=== PATIENT | female | born 2000 | race Caucasian/White ===

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

== ENCOUNTER → 2019-02-04 | Outpatient (REF) | payer OTHER ==
[~2019-02-04] MED LIST changes: +AMOX875T PO; +BACT800T5 PO; +COLA100C5 PO; +IBUP80TA PO; +MONI1CRE2 PV; +NORCOTAB PO; +PERC5TAB12 PO; +PRENCHW PO; +ZOFR4TAB14 PO
[2019-02-04 20:25] LABS: CHLAMYDIA DNA AMPLIFICATION NEGATIVE (NEGATIVE); GC DNA AMPLIFICATION NEGATIVE (NEGATIVE)
== END ==
LOC: M LAB REF 16:54
PROVIDERS: ATTEND Nurse Practitioner Primary Care
DX: R30.0 Dysuria (principal); Z72.51 High risk heterosexual behavior; N77.1 Vaginitis, vulvitis and vulvovaginitis in diseases classified elsewhere

== ENCOUNTER 2020-08-31 19:41 | Emergency (ER) | payer OTHER ==
[~2020-08-31] VITALS: Ht 157.5 cm; Wt 71.4 kg
[~2020-08-31 19:41] MED LIST changes: +HYDR-3715 PO; -NORCOTAB PO
[2020-08-31] MEDS ORDERED: methylPREDNISolone 125MG 2ML VIAL IV ONE (20:15)
[2020-08-31] MEDS ORDERED: NS 1,000 ML IV ONE (20:15)
[2020-08-31] MEDS ORDERED: ALBUTEROL 90 MCG/ACT 8GM HFA INHALER INH ONE (20:15)
[2020-08-31] MEDS ORDERED: ONDANSETRON 4MG/2ML VIAL IV ONE (20:15)
[2020-08-31 20:49] LABS: BASO % 0.3 % (0.0-1.0); EOS # 0.2 10^3/uL (0.0-0.5); EOS % 1.7 % (0.0-3.0); HEMATOCRIT 41.7 % (36.0-47.0); HEMOGLOBIN 13.3 g/dl (12.0-15.5); LYMPH # 2.1 10^3/uL (1.5-5.0); LYMPH % 21.6 % (24.0-44.0); MEAN CORPUSCULAR HEMOGLOBIN 26.7 pg (27.0-33.0); MEAN CORPUSCULAR HGB CONC 31.9 g/dl (32.0-36.5); MEAN CORPUSCULAR VOLUME 83.6 fl (80.0-96.0); MONO # 0.5 10^3/uL (0.0-0.8); MONO % 5.2 % (0.0-5.0); NEUTROPHILS # 6.7 10^3/uL (1.5-8.5); PLATELET COUNT, AUTOMATED 297 10^3/uL (150-450); RED BLOOD COUNT 4.99 10^6/uL (4.00-5.40); WHITE BLOOD COUNT 9.5 10^3/uL (4.0-10.0)
[2020-08-31 21:01] LABS: MONO SCRN NEGATIVE (NEGATIVE)
--- NOTE | 2020-08-31 21:59 | REPVR ---
PROCEDURE INFORMATION: Exam: XR Chest, 2 Views Exam date and time: 08/31/2020 9:40 PM Age: 19 years old Clinical indication: Cough and dyspnea; Additional info: Dyspnea/cough TECHNIQUE: Imaging protocol: XR of the chest Views: 2 views. COMPARISON: CR Ribs uni W-PA CHEST ONLY RIGHT 07/27/2017 2:15 PM FINDINGS: Lungs: Unremarkable. No consolidation. Pleural space: Unremarkable. No pleural effusion. No pneumothorax. Heart/Mediastinum: Unremarkable. No cardiomegaly. Bones/joints: Unremarkable. IMPRESSION: No acute findings. Electronically signed by: Adrien Maxwell On 08/31/2020 21:58:50 PM
[2020-08-31] MEDS ORDERED: BENZONATATE 100 MG CAP PO ONE (22:00)
[2020-08-31] MEDS ORDERED: PRED20TA PO (22:03)
[2020-08-31 22:44] VITALS: BP 123/61
== END 2020-08-31 22:55 | disposition home or self-care (01) ==
LOC: M ED 19:41
DX: J45.901 Unspecified asthma with (acute) exacerbation (principal); J06.9 Acute upper respiratory infection, unspecified; Z20.828 Contact with and (suspected) exposure to other viral communicable diseases; F17.200 Nicotine dependence, unspecified, uncomplicated; Z91.030 Bee allergy status
CPT/HCPCS: 71046; 80047; 84702; 85025; 86308; 87880; 94640; 96361; 96374; 96375; 99284; J2405; J2930; U0003

== ENCOUNTER 2020-09-24 11:11 | Emergency (ER) | payer OTHER ==
[~2020-09-24] VITALS: Ht 157.5 cm; Wt 71.6 kg
[~2020-09-24 11:11] MED LIST changes: +PRED20TA PO
[2020-09-24] MEDS ORDERED: ALBU8.5H (11:20)
[2020-09-24 12:14] LABS: HEMATOCRIT 38.6 % (36.0-47.0); HEMOGLOBIN 12.5 g/dl (12.0-15.5); MEAN CORPUSCULAR HEMOGLOBIN 27.2 pg (27.0-33.0); MEAN CORPUSCULAR HGB CONC 32.4 g/dl (32.0-36.5); MEAN CORPUSCULAR VOLUME 83.9 fl (80.0-96.0); PLATELET COUNT, AUTOMATED 236 10^3/uL (150-450); WHITE BLOOD COUNT 6.8 10^3/uL (4.0-10.0)
[2020-09-24 12:35] LABS: HCG, SERUM QUALITATIVE POSITIVE (NEGATIVE)
--- NOTE | 2020-09-24 12:49 | REP ---
INDICATION: VB . COMPARISON: None. TECHNIQUE: Transabdominal and transvaginal scanning. FINDINGS: Uterine dimensions are 10.3 x 4.7 x 5.9 cm. Endometrial echo is 2.2 cm thick. No intrauterine gestational sac is seen. No free fluid is seen. No yolk sac seen. Normal ovaries are observed. Right ovarian dimensions are 3.6 x 1.4 x 2.8 cm. Doppler flow is present in the right ovary, resistive index 0.43. The left ovary measures 2.9 x 2.8 x 2.3 cm. Doppler flow is present in the left ovary as well, resistive index 0.61. No free fluid is seen. No adnexal mass is observed. IMPRESSION: Mildly prominent size empty uterus. No intrauterine gestational sac is seen. No adnexal mass or free fluid is observed. Nonspecific sonographic findings. Clinical and possibly sonographic follow-up suggested. <Electronically signed by Lawson Roque > 09/24/20 [id number]
[2020-09-24 13:25] LABS: HCG, SERUM QUANTITATIVE 676 MIU/ML
[2020-09-24] MEDS ORDERED: RHOGAM 300 MCG (1500 IU) INJ (J2790) IM ONE (14:00)
[2020-09-24 14:36] VITALS: BP 135/73
[2020-09-24 14:47] LABS: CHLAMYDIA DNA AMPLIFICATION NEGATIVE (NEGATIVE); GC DNA AMPLIFICATION POSITIVE (NEGATIVE)
== END 2020-09-24 14:40 | disposition home or self-care (01) ==
LOC: M ED 11:11
DX: O46.91 Antepartum hemorrhage, unspecified, first trimester (principal); Z20.828 Contact with and (suspected) exposure to other viral communicable diseases
CPT/HCPCS: 36415; 76801; 76817; 84702; 84703; 85027; 86850; 86900; 86901; 87210; 87661; 93976; 96372; 99283; J2790; U0003

== ENCOUNTER 2020-09-29 16:05 | Emergency (ER) | payer OTHER ==
[~2020-09-29] VITALS: Ht 160 cm; Wt 71.5 kg
[~2020-09-29 16:05] MED LIST changes: +ALBU8.5H
[2020-09-29 16:06] VITALS: BP 122/57
[2020-09-29] MEDS ORDERED: cefTRIAXone SOD 250MG VIAL (J0696 PER 250MG) IM ONE (16:45)
[2020-09-29] MEDS ORDERED: AZITHROMYCIN 250MG TABLET PO ONE (16:45)
[2020-09-29] MEDS ORDERED: LIDOCAINE 1% SDV 5ML VIAL DILUENT ONE (16:45)
== END 2020-09-29 17:00 | disposition home or self-care (01) ==
LOC: M ED 16:05
DX: O98.211 Gonorrhea complicating pregnancy, first trimester (principal); Z3A.01 Less than 8 weeks gestation of pregnancy
CPT/HCPCS: 96372; 99284; J0696

== ENCOUNTER 2020-10-06 19:49 | Emergency (ER) | payer OTHER ==
[~2020-10-06] VITALS: Ht 157.5 cm; Wt 72.7 kg
[2020-10-06] MEDS ORDERED: ONDANSETRON 4MG/2ML VIAL IV ONE (20:30)
[2020-10-06] MEDS ORDERED: NS 1,000 ML IV ONE ×2 (20:30→22:45)
[2020-10-06 20:49] LABS: BASO % 0.4 % (0.0-1.0); EOS % 0.6 % (0.0-3.0); HEMATOCRIT 39.1 % (36.0-47.0); HEMOGLOBIN 12.6 g/dl (12.0-15.5); LYMPH # 2.4 10^3/uL (1.5-5.0); LYMPH % 34.8 % (24.0-44.0); MEAN CORPUSCULAR HEMOGLOBIN 26.3 pg (27.0-33.0); MEAN CORPUSCULAR HGB CONC 32.2 g/dl (32.0-36.5); MEAN CORPUSCULAR VOLUME 81.6 fl (80.0-96.0); MONO # 0.5 10^3/uL (0.0-0.8); MONO % 7.5 % (0.0-5.0); NEUTROPHILS # 3.9 10^3/uL (1.5-8.5); NEUTROPHILS % 56.4 % (36.0-66.0); PLATELET COUNT, AUTOMATED 257 10^3/uL (150-450); RED BLOOD COUNT 4.79 10^6/uL (4.00-5.40); WHITE BLOOD COUNT 6.8 10^3/uL (4.0-10.0)
[2020-10-06 21:34] LABS: APPEARANCE, URINE HAZY (CLEAR); BACTERIA, URINE AUTO NEGATIVE (NEGATIVE); BILIRUBIN, URINE AUTO NEGATIVE (NEGATIVE); BLOOD, URINE BLOOD NEGATIVE (NEGATIVE); COLOR, URINE YELLOW (YELLOW); GLUCOSE, URINE (UA) AUTO NEGATIVE (NEGATIVE); KETONE, URINE AUTO 2+ mg/dL (NEGATIVE); LEUKOCYTE ESTERASE, URINE AUTO NEGATIVE (NEGATIVE); MUCUS, URINE SMALL (NEGATIVE); NITRITE, URINE AUTO NEGATIVE (NEGATIVE); PROTEIN, URINE AUTO NEGATIVE (NEGATIVE); RBC, URINE AUTO 1 /HPF (0-3); SQUAMOUS EPITHELIAL CELL UR AU 14 /HPF (0-6); WBC, URINE AUTO 1 /HPF (0-3)
--- NOTE | 2020-10-06 22:04 | REPVR ---
PROCEDURE INFORMATION: Exam: US First Trimester, Transabdominal Exam date and time: 10/06/2020 9:23 PM Age: 20 years old Clinical indication: Lmp or gestational age (in weeks): 08/15/20; Antepartum complications; Bleeding; ; Additional info: Vaginal bleeding TECHNIQUE: Imaging protocol: Real-time transabdominal obstetrical ultrasound of the maternal pelvis and a first trimester , less than 14 weeks 0 days, with image documentation. COMPARISON: No relevant prior studies available. FINDINGS: Gestation: An intrauterine gestational sac can be seen within the endometrium in both sagittal and transverse planes. Within the gestational sac there is a pole estimated at 6 weeks 2 days utilizing crown-rump length. There is cardiac activity estimated at 121 bpm. There may be a small crescent shaped implantation bleed. Uterus: The uterus measures 9.2 cm in length by 6.2 cm in AP dimension by 7.7 cm in transverse dimension. Cervix: Unremarkable. Right adnexa: The right ovary measures 2.5 cm in length by 1.9 cm in thickness and there is vascular flow with no evidence of torsion. Left adnexa: The left ovary measures 3.2 cm in length by 1.9 cm in thickness and there is vascular flow no evidence of torsion. Intraperitoneal space: There is no evidence of free fluid in the pelvis. Urinary bladder: There is only a small amount of urine in the urinary bladder. Other findings: There is decidual reaction noted. IMPRESSION: 1. Intrauterine gestational sac with a pole estimated at 6 weeks 2 days with good cardiac activity at 121 bpm. 2. Suspect small crescent shaped implantation bleed. 3. This is very early in gestation and all parameters cannot be assessed therefore a complete survey should be done at 18-20 weeks gestation. Electronically signed by: Anurag Elaine On 10/06/2020 22:04:14 PM
[2020-10-06] MEDS ORDERED: AZITHROMYCIN 250MG TABLET PO ONE (22:45)
[2020-10-06] MEDS ORDERED: cefTRIAXone SOD 250MG VIAL (J0696 PER 250MG) IM ONE (22:45)
[2020-10-06] MEDS ORDERED: LIDOCAINE 1% SDV 5ML VIAL DILUENT ONE (22:45)
[2020-10-06 22:57] LABS: CHLAMYDIA DNA AMPLIFICATION NEGATIVE (NEGATIVE); GC DNA AMPLIFICATION NEGATIVE (NEGATIVE)
[2020-10-06] MEDS ORDERED: ZOFR4TAB16 PO (23:00)
[2020-10-06 23:16] VITALS: BP 123/69
== END 2020-10-06 23:55 | disposition home or self-care (01) ==
LOC: M ED 19:49
DX: O20.0 Threatened abortion (principal); Z20.2 Contact with and (suspected) exposure to infections with a predominantly sexual mode of transmission; Z3A.01 Less than 8 weeks gestation of pregnancy; Z91.030 Bee allergy status; Z98.890 Other specified postprocedural states
CPT/HCPCS: 76801; 81001; 84702; 85025; 87086; 87491; 87591; 93976; 96372; 96374; 99284; J0696; J2405

== ENCOUNTER → 2020-10-26 | Outpatient (REF) | payer OTHER ==
[~2020-10-26] MED LIST changes: +ZOFR4TAB16 PO
[2020-10-26 18:28] LABS: BASO % 0.3 % (0.0-1.0); EOS # 0.1 10^3/uL (0.0-0.5); EOS % 1.2 % (0.0-3.0); HEMATOCRIT 38.9 % (36.0-47.0); HEMOGLOBIN 12.2 g/dl (12.0-15.5); LYMPH # 1.9 10^3/uL (1.5-5.0); LYMPH % 27.6 % (24.0-44.0); MEAN CORPUSCULAR HEMOGLOBIN 26.5 pg (27.0-33.0); MEAN CORPUSCULAR HGB CONC 31.4 g/dl (32.0-36.5); MEAN CORPUSCULAR VOLUME 84.6 fl (80.0-96.0); MONO # 0.3 10^3/uL (0.0-0.8); MONO % 4.7 % (0.0-5.0); NEUTROPHILS # 4.5 10^3/uL (1.5-8.5); NEUTROPHILS % 66.1 % (36.0-66.0); PLATELET COUNT, AUTOMATED 222 10^3/uL (150-450); WHITE BLOOD COUNT 6.8 10^3/uL (4.0-10.0)
[2020-10-26 18:29] LABS: ALBUMIN 3.7 GM/DL (3.2-5.2); ALT/SGPT 13 U/L (12-78); BILIRUBIN,TOTAL 0.3 MG/DL (0.2-1.0); BLOOD UREA NITROGEN 5 MG/DL (7-18); CALCIUM LEVEL 8.9 MG/DL (8.5-10.1); CARBON DIOXIDE LEVEL 26 MEQ/L (21-32); CHLORIDE LEVEL 106 MEQ/L (98-107); CREATININE FOR GFR 0.58 MG/DL (0.55-1.30); GLOMERULAR FILTRATION RATE > 60.0 (>60); GLUCOSE, FASTING 88 MG/DL (70-100); POTASSIUM SERUM 4.4 MEQ/L (3.5-5.1); SODIUM LEVEL 136 MEQ/L (136-145); THYROID STIMULATING HORMONE 0.389 uIU/ML (0.358-3.740); TOTAL PROTEIN 6.9 GM/DL (6.4-8.2)
== END ==
LOC: M LAB REF 17:11
PROVIDERS: ATTEND Physician Assistant
DX: Z33.1 Pregnant state, incidental (principal)

== ENCOUNTER 2020-11-08 13:56 | Emergency (ER) | payer OTHER ==
[~2020-11-08] VITALS: Ht 160 cm; Wt 69.9 kg
[2020-11-08] MEDS ORDERED: PYRI25TA2 PO (14:03)
[2020-11-08] MEDS ORDERED: PREP1TAB3 PO (14:03)
[2020-11-08] MEDS ORDERED: METR-265 PO (14:03)
[2020-11-08] MEDS ORDERED: FAMO1TAB11 PO (14:03)
[2020-11-08 14:59] LABS: HEMATOCRIT 39.2 % (36.0-47.0); HEMOGLOBIN 12.9 g/dl (12.0-15.5); MEAN CORPUSCULAR HEMOGLOBIN 27.4 pg (27.0-33.0); MEAN CORPUSCULAR HGB CONC 32.9 g/dl (32.0-36.5); MEAN CORPUSCULAR VOLUME 83.4 fl (80.0-96.0); PLATELET COUNT, AUTOMATED 246 10^3/uL (150-450); WHITE BLOOD COUNT 8.2 10^3/uL (4.0-10.0)
[2020-11-08] MEDS ORDERED: NS 1,000 ML IV ONE (15:00)
[2020-11-08 15:16] LABS: BLOOD UREA NITROGEN 7 MG/DL (7-18); CALCIUM LEVEL 9.3 MG/DL (8.5-10.1); CARBON DIOXIDE LEVEL 25 MEQ/L (21-32); CHLORIDE LEVEL 106 MEQ/L (98-107); CREATININE FOR GFR 0.53 MG/DL (0.55-1.30); GLOMERULAR FILTRATION RATE > 60.0 (>60); GLUCOSE, FASTING 82 MG/DL (70-100); POTASSIUM SERUM 4.2 MEQ/L (3.5-5.1); SODIUM LEVEL 138 MEQ/L (136-145)
--- NOTE | 2020-11-08 15:54 | REP ---
INDICATION: nausea, spotting reports 9 weeks COMPARISON: 10/06/2020 TECHNIQUE: Transabdominal 1st trimester obstetrical ultrasound with color Doppler evaluation. FINDINGS: Single live early intrauterine is appreciated. Gestational sac with yolk sac and pole identified. [place]-rump length of 4.8 cm corresponds to 11 weeks 4 days gestational age with estimated date of delivery 05/26/2021. heart rate equals 172 beats per minute. No gross abnormalities are identified. IMPRESSION: Single live early intrauterine at 11 weeks 4 days gestational age. Complete anatomical assessment should be performed and 19-20 weeks. <Electronically signed by Nicolás Cohn > 11/08/20 [id number]
[2020-11-08] MEDS ORDERED: MILKSUS3 PO (16:44)
[2020-11-08] MEDS ORDERED: MOM 30ML SUSPENSION UDC PO ONE (16:45)
[2020-11-08 16:49] VITALS: BP 122/56
== END 2020-11-08 16:52 | disposition home or self-care (01) ==
LOC: M ED 13:56
DX: O99.611 Diseases of the digestive system complicating pregnancy, first trimester (principal); O99.511 Diseases of the respiratory system complicating pregnancy, first trimester; O21.9 Vomiting of pregnancy, unspecified; Z3A.11 11 weeks gestation of pregnancy; Z79.899 Other long term (current) drug therapy; Z91.030 Bee allergy status

== ENCOUNTER → 2020-11-23 | Outpatient (REF) | payer OTHER ==
[~2020-11-23] MED LIST changes: +FAMO1TAB11 PO; +METR-265 PO; +MILKSUS3 PO; +PREP1TAB3 PO; +PYRI25TA2 PO
== END ==
LOC: M PLALAB 12:37
PROVIDERS: ATTEND Obstetrics & Gynecology
DX: Z53.9 Procedure and treatment not carried out, unspecified reason (principal); Z3A.14 14 weeks gestation of pregnancy

== ENCOUNTER → 2020-12-23 | Outpatient (CLI) | payer OTHER ==
--- NOTE | 2020-12-24 10:13 | REP ---
INDICATION: ANATOMY. Supervision of . COMPARISON: Comparison study November 08, 2020.. TECHNIQUE: Transabdominal obstetric sonography. FINDINGS: Scanning through the gravid uterus demonstrates a viable single intrauterine gestation in breech lie. motion is observed and heart rate is recorded at 143 beats per minute. A right posterior placenta is seen, grade 1, without evidence of placenta previa. Closed cervical length is measured at 4.0 cm transabdominally. No extrauterine abnormality is observed. Amniotic fluid is subjectively normal. No anomaly is seen. The following anatomic structures are identified and felt to be sonographically unremarkable: cranium, choroid plexus, cavum, cerebellum and posterior fossa, face and profile, lungs, four-chamber heart with left and right ventricular outflow tract views, diaphragm, left-sided stomach, abdominal wall cord insertion, three-vessel umbilical cord, kidneys and bladder, spine, and upper and lower extremities. Biometry chart: BPD 3.9 cm, 17 weeks 5 days Head circumference 14.6 cm, 17 weeks 6 days Abdominal circumference 12.3 cm, 18 weeks 0 days Femur length 2.3 cm, 16 weeks 6 days Humeral length 2.5 cm, 17 weeks 6 days HC AC ratio normal 1.19 Cephalic index normal 0.72 Estimated weight 196 g, 0 lb 6 oz, 51st percentile for 17 weeks 3 days IMPRESSION: Viable single intrauterine gestation at 17 weeks 5 days by today's composite sonographic criteria. GABBIE by today's sonography 28 May 2021. No complication identified. Expected gestational age estimate based on prior sonography is 17 weeks 3 days. GABBIE by prior sonography 30 May 2021. <Electronically signed by Lawson Roque > 12/24/20 [id number]
== END ==
LOC: M WHC 13:34
PROVIDERS: ATTEND Obstetrics & Gynecology
DX: Z36.89 Encounter for other specified antenatal screening (principal); Z3A.17 17 weeks gestation of pregnancy

== ENCOUNTER 2021-01-26 12:21 | Outpatient (CLI) | payer OTHER ==
[~2021-01-26] VITALS: Ht 157.5 cm; Wt 71.8 kg
[2021-01-26 12:36] VITALS: BP 121/60
[2021-01-26 13:21] LABS: HEMATOCRIT 33.2 % (36.0-47.0); HEMOGLOBIN 10.7 g/dl (12.0-15.5); MEAN CORPUSCULAR HEMOGLOBIN 27.9 pg (27.0-33.0); MEAN CORPUSCULAR HGB CONC 32.2 g/dl (32.0-36.5); MEAN CORPUSCULAR VOLUME 86.7 fl (80.0-96.0); PLATELET COUNT, AUTOMATED 223 10^3/uL (150-450); RED BLOOD COUNT 3.83 10^6/uL (4.00-5.40)
[2021-01-26 13:33] LABS: INR 0.96
[2021-01-26 13:34] LABS: PARTIAL THROMBOPLASTIN TIME 30.6 SECONDS (24.2-38.5)
[2021-01-26 13:54] VITALS: BP 113/65
--- NOTE | 2021-01-26 16:11 | IPNPDOC ---
Obstetrical Progress Note Date of Service Jan 26, 2021 Subjective 20-year-old G2, P1 001 at 23+1 weeks gestation. Presents today after a slip and fall on the stairs. She fell down 5 stairs and landed on her back. States she's had abdominal and lower back pain mainly lower back pain since the fall. Denies uterine contractions, vaginal bleeding or loss of fluid. She is feeling baby move regularly. States she has had spotting off and on during this and last had spotting this morning. Hard to ascertain if she had spotting after the fall. No loss of consciousness although the patient states she chronically feels dizzy and weak. Denies shortness of breath or chest pain Past medical and surgical history reviewed: History of prior , mild intermittent asthma and marijuana and tobacco use. Denies any recent drug use and feels safe at home Normotensive. Normal heart rate. Afebrile Abdomen soft, nontender, nondistended. No uterine fundal tenderness Extremities nonedematous, nontender Back: No CVA tenderness, positive sacroiliac tenderness Pelvic: Cervix is visually closed. No blood in the vaginal vault, normal discharge, no foul odor. Sterile Digital cervical exam reveals a closed long thick cervix with no bloody show EFM: Reactive for EGA, normal baseline, moderate variability, no decelerations noted [place]: No contraction pattern detected Labs: See [employer] / below. A/P: 20-year-old after slip and fall at 23+1 weeks' gestation. Reassuring maternal and status. No clinical evidence of placental abruption. Mild anemia noted, which could explain some of her symptoms of feeling weak and dizzy. -Routine second trimester precautions were reviewed -Advised that she start iron sulfate supplementation addition to her vitamin to correct her mild iron deficiency anemia -Follow-up in the office as scheduled Yony Miles DO Objective Vital Signs Date Time Temp Pulse Resp B/P (MAP) Pulse Ox O2 Delivery O2 Flow Rate FiO2 01/26/21 12:36 97.8 80 20 121/60 (80) Laboratory Tests 01/26/21 13:02: White Blood Count 8.0, Red Blood Count 3.83L, Hemoglobin 10.7L, Hematocrit 33.2L, Mean Corpuscular Volume 86.7, Mean Corpuscular Hemoglobin 27.9, Mean Corpuscular Hemoglobin Concent 32.2, Red Cell Distribution Width 13.5, Platelet Count 223, Nucleated Red Blood Cells % (auto) 0.0, Prothrombin Time 13.0, Prothromb Time International Ratio 0.96, Activated Partial Thromboplast Time 30.6, Fibrinogen 318 Laboratory Tests 01/26/21 13:02 Vital Signs Date Time Temp Pulse Resp B/P (MAP) Pulse Ox O2 Delivery O2 Flow Rate FiO2 01/26/21 12:36 97.8 80 20 121/60 (80) ART MILES DO Jan 26, 2021 16:11
== END 2021-01-26 16:10 | disposition home or self-care (01) ==
LOC: M LDO 12:21
PROVIDERS: ATTEND Obstetrics & Gynecology
DX: O99.891 Other specified diseases and conditions complicating pregnancy (principal); W10.8XXA Fall (on) (from) other stairs and steps, initial encounter; Z3A.23 23 weeks gestation of pregnancy

== ENCOUNTER → 2021-02-05 | Outpatient (REF) | payer OTHER | LOC: M PLALAB 15:22 | PROVIDERS: ATTEND Obstetrics & Gynecology | DX: O34.211 Maternal care for low transverse scar from previous cesarean delivery (principal) ==

== ENCOUNTER → 2021-02-26 | Outpatient (REF) | payer OTHER ==
[~2021-02-26] MED LIST changes: +ACET-897 PO; +FERR1TAB8 PO; +MACR100C43 PO
== END ==
LOC: M PLALAB 11:34
PROVIDERS: ATTEND Obstetrics & Gynecology
DX: O34.211 Maternal care for low transverse scar from previous cesarean delivery (principal)
CPT/HCPCS: 36415; 82950; 86850; 86901; J2790

== ENCOUNTER 2021-03-03 12:37 | Emergency (ER) | payer OTHER ==
[~2021-03-03] VITALS: Ht 160 cm; Wt 71.5 kg
[~2021-03-03 12:37] MED LIST changes: -ACET-897 PO; -FERR1TAB8 PO; -MACR100C43 PO
[2021-03-03] MEDS ORDERED: FERR1TAB8 PO (12:50)
[2021-03-03] MEDS ORDERED: ONDANSETRON 4MG/2ML VIAL IV ONE (13:45)
[2021-03-03] MEDS ORDERED: NS 1,000 ML IV ONE (13:45)
[2021-03-03 14:38] LABS: BASO % 0.4 % (0.0-1.0); EOS % 0.4 % (0.0-3.0); HEMATOCRIT 32.5 % (36.0-47.0); HEMOGLOBIN 10.7 g/dl (12.0-15.5); LYMPH # 1.8 10^3/uL (1.5-5.0); LYMPH % 18.5 % (24.0-44.0); MEAN CORPUSCULAR HEMOGLOBIN 28.1 pg (27.0-33.0); MEAN CORPUSCULAR HGB CONC 32.9 g/dl (32.0-36.5); MEAN CORPUSCULAR VOLUME 85.3 fl (80.0-96.0); MONO # 0.5 10^3/uL (0.0-0.8); MONO % 5.4 % (2.0-8.0); NEUTROPHILS # 7.1 10^3/uL (1.5-8.5); PLATELET COUNT, AUTOMATED 271 10^3/uL (150-450); RED BLOOD COUNT 3.81 10^6/uL (4.00-5.40); WHITE BLOOD COUNT 9.6 10^3/uL (4.0-10.0)
[2021-03-03 14:43] LABS: APPEARANCE, URINE CLOUDY (CLEAR); BACTERIA, URINE AUTO 1+ (NEGATIVE); BILIRUBIN, URINE AUTO NEGATIVE (NEGATIVE); BLOOD, URINE BLOOD NEGATIVE (NEGATIVE); CALCIUM OXALATE CRYSTALS MODERATE; COLOR, URINE YELLOW (YELLOW); GLUCOSE, URINE (UA) AUTO NEGATIVE (NEGATIVE); KETONE, URINE AUTO 1+ mg/dL (NEGATIVE); LEUKOCYTE ESTERASE, URINE AUTO 2+ (NEGATIVE); MUCUS, URINE SMALL (NEGATIVE); NITRITE, URINE AUTO NEGATIVE (NEGATIVE); PROTEIN, URINE AUTO 1+ mg/dL (NEGATIVE); RBC, URINE AUTO 13 /HPF (0-3); SPECIFIC GRAVITY URINE AUTO 1.027 (1.002-1.035); SQUAMOUS EPITHELIAL CELL UR AU 92 /HPF (0-6); WBC, URINE AUTO 16 /HPF (0-3)
[2021-03-03 15:04] LABS: AMPHETAMINES LEVEL URINE NEGATIVE (NEGATIVE); BARBITURATES URINE NEGATIVE (NEGATIVE); BENZODIAZEPINES URINE NEGATIVE (NEGATIVE); CANNABINOIDS URINE POSITIVE (NEGATIVE); COCAINE METABOLITE URINE NEGATIVE (NEGATIVE); METHADONE URINE NEGATIVE (NEGATIVE); OPIATES URINE NEGATIVE (NEGATIVE); PHENCYCLIDINE URINE NEGATIVE (NEGATIVE)
[2021-03-03 15:39] VITALS: BP 114/69
[2021-03-03 16:04] LABS: ALT/SGPT 11 U/L (12-78); BILIRUBIN,DIRECT < 0.1 MG/DL (0.0-0.2); BILIRUBIN,TOTAL 0.5 MG/DL (0.2-1.0); BLOOD UREA NITROGEN 7 MG/DL (7-18); CARBON DIOXIDE LEVEL 20 MEQ/L (21-32); CHLORIDE LEVEL 106 MEQ/L (98-107); CREATININE FOR GFR 0.41 MG/DL (0.55-1.30); GLOMERULAR FILTRATION RATE > 60.0 (>60); GLUCOSE, FASTING 79 MG/DL (70-100); POTASSIUM SERUM 4.4 MEQ/L (3.5-5.1); SODIUM LEVEL 137 MEQ/L (136-145); TOTAL PROTEIN 6.4 GM/DL (6.4-8.2)
== END 2021-03-03 15:52 | disposition home or self-care (01) ==
LOC: M ED 12:37
DX: O9A.23 Injury, poisoning and certain other consequences of external causes complicating the puerperium (principal); T40.7X1A Poisoning by cannabis (derivatives), accidental (unintentional), initial encounter; O21.9 Vomiting of pregnancy, unspecified; Z91.030 Bee allergy status; Z3A.00 Weeks of gestation of pregnancy not specified
CPT/HCPCS: 36415; 80048; 80076; 80307; 81001; 85025; 87086; 96361; 96374; 99284; J2405

== ENCOUNTER 2021-03-07 18:01 | Outpatient (CLI) | payer OTHER ==
[~2021-03-07] VITALS: Ht 157.5 cm; Wt 73.6 kg
[~2021-03-07 18:01] MED LIST changes: +FERR1TAB8 PO
[2021-03-07] MEDS ORDERED: ACET-897 PO (18:15)
[2021-03-07 18:17] VITALS: BP 103/62
[2021-03-07 19:22] LABS: APPEARANCE, URINE CLOUDY (CLEAR); BACTERIA, URINE AUTO NEGATIVE (NEGATIVE); BILIRUBIN, URINE AUTO NEGATIVE (NEGATIVE); BLOOD, URINE BLOOD NEGATIVE (NEGATIVE); COLOR, URINE YELLOW (YELLOW); GLUCOSE, URINE (UA) AUTO NEGATIVE (NEGATIVE); KETONE, URINE AUTO 1+ mg/dL (NEGATIVE); LEUKOCYTE ESTERASE, URINE AUTO TRACE (NEGATIVE); MUCUS, URINE SMALL (NEGATIVE); NITRITE, URINE AUTO NEGATIVE (NEGATIVE); PROTEIN, URINE AUTO NEGATIVE (NEGATIVE); RBC, URINE AUTO 2 /HPF (0-3); SPECIFIC GRAVITY URINE AUTO 1.015 (1.002-1.035); SQUAMOUS EPITHELIAL CELL UR AU 11 /HPF (0-6); WBC, URINE AUTO 8 /HPF (0-3)
[2021-03-07] MEDS ORDERED: MACR100C43 PO (20:33)
[2021-03-07] MEDS ORDERED: NITROFURANTOIN (MACROBID) 100 MG CAP PO ONE (20:35)
== END 2021-03-07 21:02 | disposition home or self-care (01) ==
LOC: M LDO 18:01
PROVIDERS: ATTEND Obstetrics & Gynecology
DX: O23.43 Unspecified infection of urinary tract in pregnancy, third trimester (principal); Z3A.28 28 weeks gestation of pregnancy

== ENCOUNTER 2021-03-19 21:27 | Emergency (ER) | payer OTHER ==
[~2021-03-19] VITALS: Ht 157.5 cm; Wt 74.5 kg
[2021-03-19 21:27] VITALS: BP 128/82
[~2021-03-19 21:27] MED LIST changes: +ACET-897 PO; +MACR100C43 PO
[2021-03-19] MEDS ORDERED: FAMO20TA PO (21:46)
== END 2021-03-20 00:24 | disposition left against medical advice (07) ==
LOC: M ED 21:27
DX: Z53.21 Procedure and treatment not carried out due to patient leaving prior to being seen by health care provider (principal)

== ENCOUNTER 2021-03-23 22:37 | Outpatient (CLI) | payer OTHER ==
[~2021-03-23] VITALS: Ht 157.5 cm; Wt 80.0 kg
[~2021-03-23 22:37] MED LIST changes: +FAMO20TA PO
[2021-03-23 22:44] VITALS: BP 109/89
[2021-03-23] MEDS ORDERED: TUMS500C PO (23:03)
[2021-03-23 23:30] LABS: HEMATOCRIT 30.6 % (36.0-47.0); MEAN CORPUSCULAR HEMOGLOBIN 27.8 pg (27.0-33.0); MEAN CORPUSCULAR HGB CONC 32.7 g/dl (32.0-36.5); PLATELET COUNT, AUTOMATED 231 10^3/uL (150-450); WHITE BLOOD COUNT 9.1 10^3/uL (4.0-10.0)
[2021-03-23 23:44] LABS: INR 0.96
--- NOTE | 2021-03-23 23:49 | IPNPDOC ---
Obstetrical Progress Note Date of Service March 23, 2021 Subjective Subjective/HPI: 20-year-old at 31+1 weeks' gestation. Presents today complaining of uterine cramping/contraction/pelvic discomfort and low back pain. Low back pain does not radiate the flank nor does it safer one side. Denies any vaginal bleeding or loss of fluid. Reports regular movement. She has had intercourse in the last 24 hours. Denies headache, visual changes, shortness of breath, chest pain. Recently treated for a UTI and has recently been prescribed another antibiotic for URI symptoms. course uncomplicated thus far History of prior emergent low transverse section for placental abruption Objective: Normotensive. Normal heart rate. Afebrile Abdomen soft, nontender, nondistended. Uterine fundus , nontender. Extremities nonedematous, nontender Pelvic: Sterile speculum exam reveals no pooling, no vaginal bleeding, no abnormal discharge or foul odor. Negative nitrazine, negative ferning. Sterile vaginal/cervical exam reveals a closed long thick cervix. Transvaginal ultrasound, limited: Cervical length 4.5 cm. No dynamic changes/funneling. Transabdominal ultrasound, limited: Cephalic presentation, MVP 5.5 cm EFM: Reactive, moderate variability, no decelerations [place]:. No contractions Labs: See [employer] Assessment/plan: 20 year-old at 31+1 weeks' gestation. No evidence of premature ruptured membranes, active labor, advanced cervical dilation, or shortened cervical length. Current maternal and condition is reassuring. -Routine third trimester precautions were reviewed -Follow-up in the office as scheduled -Patient to make appointments with PT for treatment of her back pain Objective Vital Signs Date Time Temp Pulse Resp B/P (MAP) Pulse Ox O2 Delivery O2 Flow Rate FiO2 03/23/21 22:44 99.1 76 18 109/89 (96) ART GARCIA DO March 23, 2021 23:49
[2021-03-24 00:09] LABS: ALBUMIN 2.8 GM/DL (3.2-5.2); ALT/SGPT 9 U/L (12-78); BILIRUBIN,TOTAL 0.4 MG/DL (0.2-1.0); BLOOD UREA NITROGEN 4 MG/DL (7-18); CALCIUM LEVEL 8.5 MG/DL (8.5-10.1); CARBON DIOXIDE LEVEL 26 MEQ/L (21-32); CHLORIDE LEVEL 109 MEQ/L (98-107); CREATININE FOR GFR 0.43 MG/DL (0.55-1.30); GLOMERULAR FILTRATION RATE > 60.0 (>60); GLUCOSE, FASTING 80 MG/DL (70-100); POTASSIUM SERUM 4.2 MEQ/L (3.5-5.1); SODIUM LEVEL 139 MEQ/L (136-145); TOTAL PROTEIN 6.1 GM/DL (6.4-8.2)
[2021-03-24 01:18] LABS: AMPHETAMINES URINE REFLEX NEGATIVE (NEGATIVE); BARBITURATES URINE REFLEX NEGATIVE (NEGATIVE); BENZODIAZEPINES URINE REFLEX NEGATIVE (NEGATIVE); COCAINE METABOLITE URINE REFLE NEGATIVE (NEGATIVE); METHADONE URINE REFLEX NEGATIVE (NEGATIVE); OPIATES URINE REFLEX NEGATIVE (NEGATIVE); PHENCYCLIDINE URINE REFLEX NEGATIVE (NEGATIVE)
[2021-03-24 01:20] LABS: CANNABINOIDS URINE REFLEX PENDING CONFIRMATION (NEGATIVE)
[2021-03-24] MEDS ORDERED: ACETAMINOPHEN 500 MG TAB PO ONE (01:35)
== END 2021-03-24 01:45 | disposition home or self-care (01) ==
LOC: M LDO 22:37
PROVIDERS: ATTEND Obstetrics & Gynecology
DX: O26.893 Other specified pregnancy related conditions, third trimester (principal); M54.5 Low back pain; R10.2 Pelvic and perineal pain; Z3A.31 31 weeks gestation of pregnancy

== ENCOUNTER 2021-03-25 22:51 | Emergency (ER) | payer OTHER ==
[~2021-03-25] VITALS: Ht 157.5 cm; Wt 79.5 kg
[~2021-03-25 22:51] MED LIST changes: +TUMS500C PO
--- NOTE | 2021-03-25 23:46 | REPVR ---
PROCEDURE INFORMATION: Exam: CT Head Without Contrast Exam date and time: 03/25/2021 11:07 PM Age: 20 years old Clinical indication: Injury or trauma; Fall; Concussion/head injury; Additional info: Trauma/loc/ TECHNIQUE: Imaging protocol: Computed tomography of the head without contrast. Radiation optimization: All CT scans at this facility use at least one of these dose optimization techniques: automated exposure control; mA and/or kV adjustment per patient size (includes targeted exams where dose is matched to clinical indication); or iterative reconstruction. COMPARISON: CT Head without contrast 07/27/2017 2:03 PM FINDINGS: Brain: Normal. No hemorrhage. Unremarkable white matter. No mass effect. Cerebral ventricles: Normal ventricles. Bones/joints: Unremarkable. No acute fracture. Paranasal sinuses: Clear paranasal sinuses. Mastoid air cells: Clear mastoid air cells. Orbital cavity: The orbits appear symmetric. Soft tissues: There is no evidence of soft tissue abnormality. Other findings: There is no evidence of acute bleed. IMPRESSION: Normal appearing CT scan of the brain. Electronically signed by: Anurag Elaine On 03/25/2021 23:46:17 PM
[2021-03-26 00:18] LABS: BASO % 0.3 % (0.0-1.0); EOS # 0.1 10^3/uL (0.0-0.5); HEMATOCRIT 28.5 % (36.0-47.0); HEMOGLOBIN 9.6 g/dl (12.0-15.5); LYMPH # 2.7 10^3/uL (1.5-5.0); LYMPH % 30.2 % (24.0-44.0); MEAN CORPUSCULAR HGB CONC 33.7 g/dl (32.0-36.5); MEAN CORPUSCULAR VOLUME 83.1 fl (80.0-96.0); MONO # 0.6 10^3/uL (0.0-0.8); NEUTROPHILS # 5.3 10^3/uL (1.5-8.5); NEUTROPHILS % 60.5 % (36.0-66.0); PLATELET COUNT, AUTOMATED 257 10^3/uL (150-450); RED BLOOD COUNT 3.43 10^6/uL (4.00-5.40); WHITE BLOOD COUNT 8.8 10^3/uL (4.0-10.0)
[2021-03-26 00:35] LABS: INR 0.92; PROTHROMBIN TIME 12.5 SECONDS (12.5-14.3)
[2021-03-26 00:36] LABS: PARTIAL THROMBOPLASTIN TIME 30.5 SECONDS (24.2-38.5)
[2021-03-26 00:47] LABS: AMPHETAMINES LEVEL URINE NEGATIVE (NEGATIVE); BARBITURATES URINE NEGATIVE (NEGATIVE); BENZODIAZEPINES URINE NEGATIVE (NEGATIVE); CANNABINOIDS URINE POSITIVE (NEGATIVE); COCAINE METABOLITE URINE NEGATIVE (NEGATIVE); METHADONE URINE NEGATIVE (NEGATIVE); OPIATES URINE NEGATIVE (NEGATIVE); PHENCYCLIDINE URINE NEGATIVE (NEGATIVE)
--- NOTE | 2021-03-26 00:49 | REPVR ---
PROCEDURE INFORMATION: Exam: XR Pelvis Exam date and time: 03/25/2021 11:45 PM Age: 20 years old Clinical indication: Other: Trauma/ TECHNIQUE: Imaging protocol: XR pelvis. Views: 1 or 2 view. COMPARISON: Pelvis, limited US 09/02/2018 12:42 PM FINDINGS: Bones/joints: Mild diastasis of the pubic symphysis measuring 11 mm transversely. No SI joint diastasis is seen. No pelvic fracture or malalignment. Soft tissues: Unremarkable. Other findings: There is a fetus in breech position. IMPRESSION: 1. Mild diastasis of the pubic symphysis may be traumatic or secondary to ligamentous laxity in the setting of . 2. No displaced fracture or malalignment. 3. Fetus in breech position. Electronically signed by: Carlos Funes On 03/26/2021 00:48:34 AM
[2021-03-26 00:52] LABS: ALT/SGPT 9 U/L (12-78); AMYLASE 47 U/L (25-115); BILIRUBIN,DIRECT < 0.1 MG/DL (0.0-0.2); BILIRUBIN,TOTAL 0.4 MG/DL (0.2-1.0); BLOOD UREA NITROGEN 5 MG/DL (7-18); CALCIUM LEVEL 8.7 MG/DL (8.5-10.1); CARBON DIOXIDE LEVEL 23 MEQ/L (21-32); CHLORIDE LEVEL 109 MEQ/L (98-107); CK-MB VALUE MASS < 1.0 NG/ML (<3.6); CPK CREATINE PHOSPHOKINASE 34 U/L (26-192); CREATININE FOR GFR 0.41 MG/DL (0.55-1.30); ETHYL ALCOHOL (ETHANOL) < 0.003 % (0.000-0.010); GLOMERULAR FILTRATION RATE > 60.0 (>60); GLUCOSE, FASTING 79 MG/DL (70-100); LIPASE 188 U/L (73-393); MB/CK RELATIVE INDEX 2.94 (< OR =4); SODIUM LEVEL 138 MEQ/L (136-145); TOTAL PROTEIN 6.1 GM/DL (6.4-8.2); TROPONIN I < 0.02 NG/ML (< 0.10)
[2021-03-26] MEDS ORDERED: ACETAMINOPHEN *IV* 1,000 MG in IV 1 EA IV ONE (02:05)
[2021-03-26] MEDS ORDERED: oxyCODONE 5MG TAB PO ONE (04:10)
[2021-03-26 04:15] VITALS: BP 103/54
--- NOTE | 2021-03-26 07:38 | REP ---
INDICATION: trauma/. COMPARISON: None. TECHNIQUE: A single lateral spot view of the lumbosacral junction is presented. FINDINGS: Sacrum and coccyx appear intact. The top of L1 is at the top edge of the field of view. No fracture or subluxation is seen in the lumbar spine. Disc spaces are maintained. Alignment is normal. IMPRESSION: No fracture seen. Single lateral spot view of the lumbosacral junction. <Electronically signed by Lawson Roque > 03/26/21 [id number]
== END 2021-03-26 04:58 | disposition home or self-care (01) ==
LOC: M ED 22:51
DX: S39.92XA Unspecified injury of lower back, initial encounter (principal); W19.XXXA Unspecified fall, initial encounter; Y92.9 Unspecified place or not applicable; Y93.9 Activity, unspecified; Y99.9 Unspecified external cause status; Z3A.31 31 weeks gestation of pregnancy; Z79.899 Other long term (current) drug therapy; J30.2 Other seasonal allergic rhinitis; Z91.030 Bee allergy status
CPT/HCPCS: 70450; 72100; 72170; 80048; 80076; 80307; 81001; 82077; 82150; 82550; 82553; 83605; 83690; 85025; 85460; 85610; 85730; 86850; 86900; 86901; 93041; 94760; 99285; J0131

== ENCOUNTER 2021-03-26 05:02 | Outpatient (CLI) | payer OTHER ==
[~2021-03-26] VITALS: Ht 157.5 cm; Wt 73.4 kg
[2021-03-26 05:28] VITALS: BP 103/57
--- NOTE | 2021-03-26 06:11 | IPNPDOC ---
Obstetrical Progress Note Date of Service March 26, 2021 Subjective 20 yo at 31 4/7 weeks by LMP c/w 13 week ultrasound presents (EDC=05/24/2021) presents from the ED after falling down 14 stairs at home .She hit her back and side. She was cleared in the ED and sent t oTriage for monitoring. Objective Vital Signs Date Time Temp Pulse Resp B/P (MAP) Pulse Ox O2 Delivery O2 Flow Rate FiO2 03/26/21 05:28 86 103/57 (72) 03/26/21 05:27 98.3 18 Assessment Variability: Moderate Accelerations: Positive Decelerations: None Heart Rate Tracing: Category I Tocometer Contractions: No Assessment and Plan Age: 20 : 2 Term: 1 Pre-term: 0 Abortions: 0 Livin Additional Comments 20 yo at 31 4/7 s/p abdominal trauma Stable NST after extended monitoring Discharge home follow-up office as scheduled. DUGLAS JOY MD March 26, 2021 06:11
--- NOTE | 2021-03-26 09:35 | IPNPDOC ---
Text Note Date of Service The patient was seen on 03/26/21. NOTE Progress "I can't move; have no one to help me; can't get anyone to come get me." Pt is weepy, refusing discharge at this time Cat I tracing, no UC remainder of PNP (serology) added to labs from last night Will obtain her Rhogam from office and administer here Placed PFS consult. Stressed to patient she needs office appt next week. Hasn't been seen since January. VS,Fishbone, I+O VS, Fishbone, I+O Vital Signs Date Time Temp Pulse Resp B/P (MAP) Pulse Ox O2 Delivery O2 Flow Rate FiO2 03/26/21 05:28 86 103/57 (72) 03/26/21 05:27 98.3 18 Leena Melendrez CNM March 26, 2021 09:35
--- NOTE | 2021-03-26 11:28 | IPNPDOC ---
Text Note Date of Service The patient was seen on 03/26/21. NOTE Progress Rhogam from office adminstered by student nurse under supervision of Diane Torrez RN Lot # [id number], exp 07/04/22. Appointment made for 03/31 @ [address] Miles stressed need to keep all future appts Discharged home. VS,Fishbone, I+O VS, Fishbone, I+O Vital Signs Date Time Temp Pulse Resp B/P (MAP) Pulse Ox O2 Delivery O2 Flow Rate FiO2 03/26/21 05:28 86 103/57 (72) 03/26/21 05:27 98.3 18 Leena Melendrez CNM March 26, 2021 11:28
[2021-03-26 11:33] LABS: HIV 1&2 SCREEN CENTAUR NEGATIVE (NEGATIVE)
== END 2021-03-26 11:25 | disposition home or self-care (01) ==
LOC: M LDO 05:02
PROVIDERS: ATTEND Specialist
DX: O9A.213 Injury, poisoning and certain other consequences of external causes complicating pregnancy, third trimester (principal); S20.229A Contusion of unspecified back wall of thorax, initial encounter; Z3A.31 31 weeks gestation of pregnancy; Z91.19 Patient's noncompliance with other medical treatment and regimen; W10.8XXA Fall (on) (from) other stairs and steps, initial encounter; Y92.009 Unspecified place in unspecified non-institutional (private) residence as the place of occurrence of the external cause
CPT/HCPCS: 86762; 86780; 86803; 87340; 87389; 87490; 87590; U0002

== ENCOUNTER 2021-04-16 20:01 | Outpatient (CLI) | payer OTHER ==
[~2021-04-16] VITALS: Ht 160 cm; Wt 73.8 kg
--- NOTE | 2021-04-16 20:57 | IPNPDOC ---
Text Note Date of Service The patient was seen on 04/16/21. NOTE Outpatient 20yo GABBIE 05/24/2021. Presents @ 34w4d with complaints of LOF, spotting and consistent contractions. Reports good activity. Cat I tracing, no UC Spec exam neg pool, neg valsalva, neg nitrazine, neg fern. No evidence of bleeding SVE FT/long/OOP Rec increased fluids. Urine appears concentrated Dischared home. Routine precautions. Keep next appt Leena Melendrez CNM April 16, 2021 20:57
[2021-04-16 21:22] LABS: AMPHETAMINES URINE REFLEX NEGATIVE (NEGATIVE); BARBITURATES URINE REFLEX NEGATIVE (NEGATIVE); BENZODIAZEPINES URINE REFLEX NEGATIVE (NEGATIVE); COCAINE METABOLITE URINE REFLE NEGATIVE (NEGATIVE); METHADONE URINE REFLEX NEGATIVE (NEGATIVE); OPIATES URINE REFLEX NEGATIVE (NEGATIVE); PHENCYCLIDINE URINE REFLEX NEGATIVE (NEGATIVE)
[2021-04-16 21:24] LABS: APPEARANCE, URINE HAZY (CLEAR); BACTERIA, URINE AUTO NEGATIVE (NEGATIVE); BILIRUBIN, URINE AUTO NEGATIVE (NEGATIVE); BLOOD, URINE BLOOD NEGATIVE (NEGATIVE); COLOR, URINE YELLOW (YELLOW); GLUCOSE, URINE (UA) AUTO NEGATIVE (NEGATIVE); KETONE, URINE AUTO 1+ mg/dL (NEGATIVE); LEUKOCYTE ESTERASE, URINE AUTO 1+ (NEGATIVE); MUCUS, URINE SMALL (NEGATIVE); NITRITE, URINE AUTO NEGATIVE (NEGATIVE); PROTEIN, URINE AUTO NEGATIVE (NEGATIVE); RBC, URINE AUTO 2 /HPF (0-3); SPECIFIC GRAVITY URINE AUTO 1.016 (1.002-1.035); SQUAMOUS EPITHELIAL CELL UR AU 7 /HPF (0-6); WBC, URINE AUTO 4 /HPF (0-3)
[2021-04-16 21:42] LABS: CANNABINOIDS URINE REFLEX PENDING CONFIRMATION (NEGATIVE)
== END 2021-04-16 21:10 | disposition home or self-care (01) ==
LOC: M LDO 20:01
PROVIDERS: ATTEND Advanced Practice Midwife
DX: O47.03 False labor before 37 completed weeks of gestation, third trimester (principal); Z3A.34 34 weeks gestation of pregnancy; O26.853 Spotting complicating pregnancy, third trimester; Z91.030 Bee allergy status
CPT/HCPCS: 59025; 80307; 81001; G0480

== ENCOUNTER → 2021-04-22 | Outpatient (REF) | payer OTHER | LOC: M SFHCWAGY 17:20 | PROVIDERS: ATTEND Advanced Practice Midwife | DX: O34.211 Maternal care for low transverse scar from previous cesarean delivery (principal); Z3A.00 Weeks of gestation of pregnancy not specified ==

== ENCOUNTER → 2021-04-27 | Outpatient (REF) | payer OTHER | LOC: M SFHCWAGY 16:45 | PROVIDERS: ATTEND Obstetrics & Gynecology | DX: Z34.93 Encounter for supervision of normal pregnancy, unspecified, third trimester (principal); Z3A.36 36 weeks gestation of pregnancy ==

== ENCOUNTER → 2021-05-13 | Outpatient (CLI) | payer OTHER ==
[~2021-05-13] MED LIST changes: +FERR325T19; +OMEP-218
== END ==
LOC: M LABSMTC 12:01
PROVIDERS: ATTEND Anesthesiology
DX: Z01.818 Encounter for other preprocedural examination (principal); Z11.52 Encounter for screening for COVID-19

== ENCOUNTER 2021-05-17 07:40 | Inpatient (IN) | payer OTHER ==
[2021-05-17] VITALS (7 sets, daily range): BP systolic 95–121; BP diastolic 52–72
[~2021-05-17] VITALS: Ht 160 cm; Wt 75.3 kg
[2021-05-17] MEDS ORDERED: ZOLO25TA PO (08:11)
[2021-05-17] MEDS ORDERED: LR 1,000 ML IV SCH ×3 (08:15→13:20)
[2021-05-17] MEDS ORDERED: ceFAZolin SOD 2 GM in IV 1 EA IV ONE (08:20)
[2021-05-17] MEDS ORDERED: BICITRA 30ML SOLN UDC PO ONE (08:20)
[2021-05-17 08:26] LABS: MEAN CORPUSCULAR HEMOGLOBIN 24.3 pg (27.0-33.0); MEAN CORPUSCULAR VOLUME 78.4 fl (80.0-96.0); PLATELET COUNT, AUTOMATED 288 10^3/uL (150-450)
[2021-05-17] MEDS ORDERED: OXYTOCIN 30 UNITS IN 0.9% NaCl 500ML IV BAG (J2590) As Ordered ONE ×2 (10:11→13:57)
[2021-05-17] MEDS ORDERED: MORPHINE PRES-FREE INJ 10 MG/10 ML VIAL (J2274) As Ordered ONE (10:12)
[2021-05-17] MEDS ORDERED: dexameTHASONE 4 MG/ML 1ML VIAL (J1100 PER 1MG) As Ordered ONE (10:14)
[2021-05-17] MEDS ORDERED: PHENYLephrine 500MCG 5ML (100MCG/ML) SYRINGE As Ordered ONE ×2 (10:14→11:20)
[2021-05-17] MEDS ORDERED: ONDANSETRON 4MG/2ML VIAL As Ordered ONE (10:14)
[2021-05-17] MEDS ORDERED: OXYTOCIN INJ 10 UNITS/ML VIAL (J2590) As Ordered ONE (10:14)
[2021-05-17] MEDS ORDERED: KETOROLAC 60MG 2ML VIAL As Ordered ONE (10:14)
[2021-05-17] MEDS ORDERED: ePHEDrine SULFATE 25 MG/5 ML(5MG/ML) SYRINGE As Ordered ONE ×2 (10:14→12:09)
[2021-05-17 10:40] LABS: AMPHETAMINES URINE REFLEX NEGATIVE (NEGATIVE); BARBITURATES URINE REFLEX NEGATIVE (NEGATIVE); BENZODIAZEPINES URINE REFLEX NEGATIVE (NEGATIVE); COCAINE METABOLITE URINE REFLE NEGATIVE (NEGATIVE); METHADONE URINE REFLEX NEGATIVE (NEGATIVE); OPIATES URINE REFLEX NEGATIVE (NEGATIVE); PHENCYCLIDINE URINE REFLEX NEGATIVE (NEGATIVE)
[2021-05-17] MEDS ORDERED: NALBUPHINE HCL 10 MG/ML AMP (J2300) IV PRN (10:59)
[2021-05-17] MEDS ORDERED: ONDANSETRON 4MG/2ML VIAL IV PRN ×3 (10:59→13:20)
[2021-05-17] MEDS ORDERED: NALOXONE INJ 0.4MG/1ML VIAL (J2310 PER 1MG) IV PRN ×2 (10:59)
[2021-05-17] MEDS ORDERED: diphenhydrAMINE 50MG/ML VIAL (J1200) IV PRN (10:59)
[2021-05-17] MEDS ORDERED: METOCLOPRAMIDE INJ 10MG/2ML VIAL (J2765 PER 1) IV PRN ×2 (10:59→13:20)
[2021-05-17 11:04] LABS: CANNABINOIDS URINE REFLEX PENDING CONFIRMATION (NEGATIVE)
[2021-05-17] MEDS ORDERED: propofoL 200 MG/20 ML VIAL As Ordered ONE (11:40)
[2021-05-17 11:53] LABS: CORD GAS ABE V -6.6; CORD GAS HCO3 V 20.4 MEQ/L; CORD GAS O2 SAT V 43.9 %; CORD GAS PCO2 V 45.8 mmHg; CORD GAS PH V 7.266 UNITS; CORD GAS PO2 V 19.5 mmHg; CORD GAS SBC V 17.9 MEQ/L; CORD GAS TCO2 V 21.8 MEQ/L
[2021-05-17 11:55] LABS: CORD GAS ABE A -7.2; CORD GAS HCO3 A 23.6 MEQ/L; CORD GAS PCO2 A 72.7 mmHg; CORD GAS TCO2 A 25.9 MEQ/L
[2021-05-17 11:57] LABS: CORD GAS O2 SAT A < 15.0 %; CORD GAS PO2 A < 10.0 mmHg
[2021-05-17] MEDS ORDERED: fentaNYL 100 MCG/2 ML INJECTION (J3010) As Ordered ONE (11:57)
[2021-05-17] MEDS ORDERED: GLYCOPYRROLATE INJ 0.2 MG/ML 2 ML VIAL As Ordered ONE (12:12)
[2021-05-17] MEDS ORDERED: ACETAMINOPHEN 1000MG 100ML IV BTL (OFIRMEV) (J0131 PER 10MG) As Ordered ONE (12:29)
[2021-05-17] MEDS ORDERED: OXYTOCIN DRIP 30 UNITS in IV 1 EA IV SCH (12:55)
[2021-05-17] MEDS ORDERED: RHOGAM 300 MCG (1500 IU) INJ (J2790) IM SCH (12:55)
[2021-05-17] MEDS ORDERED: MEASLES,MUMPS,RUBELLA VACCINE INJ (MMR-II) (90707) SC SCH (12:55)
[2021-05-17] MEDS: LR 1,000 ML IV SCH ×2 (12:55→18:12)
[2021-05-17] MEDS ORDERED: METHYLERGONOVINE MALEATE 0.2 MG/ML VIAL (J2210) IM ONE (12:55)
[2021-05-17] MEDS ORDERED: PERCOCET 5MG/325MG TAB PO PRN ×2 (12:55→13:20)
[2021-05-17] MEDS ORDERED: fentaNYL 100 MCG/2 ML INJECTION (J3010) IV PRN (13:20)
[2021-05-17] MEDS: KETOROLAC 30 MG/ML 1ML VIAL IV SCH ×2 (17:53→23:48)
--- NOTE | 2021-05-17 18:19 | RO ---
OPERATIVE NOTE DATE OF OPERATION: 05/17/2021 PREOPERATIVE DIAGNOSIS: Moreno intrauterine at 39 weeks, 0 days with history of prior section desiring repeat. POSTOPERATIVE DIAGNOSIS: Moreno intrauterine at 39 weeks, 0 days with history of prior section desiring repeat, delivered. PROCEDURE: Repeat low transverse section, vacuum assisted. SURGEON: Kristi Knight MD UNDERCOATER: Karma Bates CNM ANESTHESIA: Spinal. INDICATION FOR OPERATION: Laura is a 20-year-old, G2, now P 2-0-0-2, with a moreno intrauterine at 39 weeks, 0 days, having history of a prior section that was done for a placental abruption and on counseling, she desired a repeat section. Her history is significant for daily marijuana use and anxiety and depression. Her first child is in foster care and she has an open CPS case so a social work consult was placed for this as well. MATERIAL FORWARDED TO THE LAB FOR EXAMINATION: Cord gases, pH arterial 7.13, base excess negative 7.2, pH venous 7.266, base excess negative 6.6. DESCRIPTION OF FINDINGS: Female infant in cephalic presentation, Apgars 8 and 9, weight 2980 gm or 6 lb, 9 oz. There was extensive scarring of the bladder up to the uterus and there was dense scarring in the subcutaneous layers. The uterus, fallopian tubes and ovaries were otherwise normal appearance. There was tight scarring of the musculature, the rectus muscles with peritoneal layer underneath and so in delivering the , it was necessary to incise the muscle bellies which were sutured afterwards. INFECTION CLASSIFICATION: *2. ESTIMATED BLOOD LOSS: 700 mL URINE OUTPUT: 15 mL of yellow urine. IV FLUIDS: 2600 mL of lactated Ringer's. DESCRIPTION OF PROCEDURE: After obtaining informed consent, the patient was taken to the operating room. She received spinal anesthesia. A Doran catheter was placed and bilateral sequential compression devices. She received 2 gm of IV Ancef prophylactically. A timeout was performed to confirm patient name, date of , procedure and indication. The team was in agreement. Spinal anesthesia was found to be adequate using an Allis clamp. Notably the patient was very nauseous prior to starting the procedure and was having emesis when I entered the operating room. She noted that she had been having a 24-hour stomach flu and she was self-medicating with marijuana. A timeout was performed to confirm patient name, date of , procedure and indication. The team was in agreement. Spinal anesthesia was found to be adequate using an Allis clamp. A Pfannenstiel skin incision was made with the scalpel and carried through to the underlying layer of fascia. The fascia was incised in the midline and the incision was extended laterally with Carvajal scissors. Superior and inferior aspects of the fascial incision were grasped with Samir clamps, elevated and the underlying rectus muscles were dissected off bluntly and sharply. The peritoneum was entered using Metzenbaum scissors after lifting up with Vita clamps and the rectus muscles were in the midline. The peritoneal incision was extended superiorly and inferiorly with good visualization of the bladder. The bladder had adhesion from the peritoneum up onto the uterus and I had to use Bovie cautery to take down some adhesion to be able to get a larger space for entry. Even so, it was somewhat snug. I used the Bovie to incise the peritoneum on both sides and that was dissected with blunt traction. The Mobius retractor was inserted. The vesicouterine peritoneum was identified, grasped with pickups and entered sharply with Metzenbaum scissors. The incision was extended laterally and a bladder flap was created digitally. The lower uterine segment was scored in a transverse fashion with a scalpel. The uterus was entered bluntly and the incision was extended with traction. The infant's head was elevated to the level of the incision but I had difficulty delivering the head because of the tight musculature from scarring from her prior section along the peritoneum so I removed the Mobius to ensure that that was not causing any difficulty gaining space and then the head still did not deliver with fundal pressure so I used bandage scissors to incise the rectus muscle bellies on each side because with first attempt on one side, still the head would not deliver so then I incised the other side and at that point still had difficulty so a vacuum was placed on the posterior aspect of the head. Suction was activated to the green zone and with one pull, no popoffs, the head then finally delivered. The suction was removed after head was delivered and the anterior shoulder, posterior shoulder and corpus were delivered without difficulty at that point. The nose and mouth were suctioned with bulb suction. The baby had a vigorous cry. Cord was clamped x2 and cut. Infant was handed off to the awaiting team. Cord gases were obtained and blood for maternal blood type. Placenta was removed with uterine massage and traction on the umbilicus cord. At that point, the uterus was exteriorized and cleared of all clot and debris. The uterine incision was repaired with 0 Vicryl suture in a running locking fashion and a second layer of 0 Monocryl was used to close the hysterotomy incision in imbricating fashion. At that point, I placed a [id number] at the area where the prior peritoneal adhesion was taken down from the uterus because it was still oozing and at that point, there was complete hemostasis noted. The uterine incision was reinspected and also noted to be hemostatic. I irrigated and suctioned behind the uterus in the posterior cul-de-sac and then the uterine incision was reinspected. There was no bleeding noted. The uterus was replaced into the abdomen and the gutters were cleared of clots. Again, incision was noted to be hemostatic on the uterus so the peritoneum was then closed using 3-0 Vicryl suture in a running fashion and I repaired the muscle bellies of the rectus muscles that had previously been incised and this was done with 0 Vicryl suture, just bringing the muscle bellies together and ensuring that there was no bleeding whatsoever. Finally, the fascia was reapproximated with 0 Vicryl suture in a running fashion. The subcutaneous tissue was copiously irrigated. Yaniv's fascia was reapproximated using 3-0 Vicryl suture in a running fashion in two layers. Skin edges were reapproximated using interrupted stitches using 3-0 Vicryl suture followed by a running subcuticular stitch using 4-0 Monocryl suture. The incision was cleaned with a wet lap, dried with a dry lap. Steri-Strips were applied in the usual fashion perpendicular to the Pfannenstiel incision and an Optifoam dressing was applied overlying. The vagina was cleared of all blood clot without active bleeding noted. The fundus was firm at U minus 1 cm. All counts were correct x2. The procedure was without complication. The patient tolerated the procedure well and was taken to the recovery room on labor and delivery in stable condition. She was also given 0.2 mg of IM Methergine after the procedure because there was some bogginess to the lower uterine segment so after all the clot was removed vaginally, she received the medication to prevent any further bleeding. %%CCLIST%%
[2021-05-17] MEDS: DOCUSATE SODIUM 100MG CAPSULE PO SCH (19:17)
[2021-05-18] VITALS (12 sets, daily range): BP systolic 90–136; BP diastolic 53–82
[2021-05-18] MEDS: LR 1,000 ML IV SCH (04:55)
[2021-05-18] MEDS: PERCOCET 5MG/325MG TAB PO PRN ×3 (05:09→22:03)
[2021-05-18] MEDS: KETOROLAC 30 MG/ML 1ML VIAL IV SCH (05:09)
[2021-05-18 06:17] LABS: HEMATOCRIT 22.6 % (36.0-47.0); MEAN CORPUSCULAR HEMOGLOBIN 24.6 pg (27.0-33.0); MEAN CORPUSCULAR HGB CONC 30.5 g/dl (32.0-36.5); MEAN CORPUSCULAR VOLUME 80.7 fl (80.0-96.0); PLATELET COUNT, AUTOMATED 228 10^3/uL (150-450); WHITE BLOOD COUNT 12.3 10^3/uL (4.0-10.0)
[2021-05-18 06:20] LABS: HEMOGLOBIN 6.9 g/dl (12.0-15.5)
[2021-05-18] MEDS ORDERED: CALCIUM CARBONATE 500 MG CHEW U/D PO PRN (06:50)
--- NOTE | 2021-05-18 07:06 | IPNPDOC ---
Progress Note Date of Service: May 18, 2021 Day#: 1 Progress Note SUBJECT: Laura is day 1 postoperative from a section. She does report some dizziness with movement. She is breast feeding and formula feeding. Reports she is voiding and eating a regular diet. OBJECTIVE: VITAL SIGNS: Within normal limits, afebrile. Alert and oriented times three. Breath sounds clear to auscultation. Abdomen: Fundus firm at U-2. Soft, NTTP. Minimal lochia. ASSESSMENT: Day 1 postoperative PLAN: 1. Reviewed risks/benefits and alternatives of blood transfusion due to severe anemia. Patient accepts blood transfusion and consents signed. 2. 2 units of PRBC ordered and to be started. 3. Continue supportive nursing care. VS, I&O, 24H, Fishbone Vital Signs/I&O Vital Signs Date Time Temp Pulse Resp B/P (MAP) Pulse Ox O2 Delivery O2 Flow Rate FiO2 05/18/21 05:09 16 05/18/21 02:00 98.2 62 100/53 (69) 98 Room Air I&O- Last 24 Hours up to 6 AM 05/18/21 06:00 Intake Total 6121 ml Output Total 1435 ml Balance 4686 ml Laboratory Data 24H LABS Laboratory Tests 2 05/17/21 08:16: Nucleated Red Blood Cells % (auto) 0.0, Syphilis Serology NONREACTIVE 05/17/21 09:30: Urine Opiates Screen NEGATIVE, Urine Methadone Screen NEGATIVE, Urine Barbiturates Screen NEGATIVE, Urine Phencyclidine Screen NEGATIVE, Urine Amphetamines Screen NEGATIVE, Urine Benzodiazepines Screen NEGATIVE, Urine Cocaine Metabolite Screen NEGATIVE, Urine Cannabinoids Screen PENDING CONFIRMATIONH 05/17/21 11:42: Cord Arterial Blood pH 7.130, Cord Arterial Blood PCO2 72.7, Cord Arterial Blood PO2 < 10.0, Cord Arterial Blood HCO3 23.6, Cord Arterial Blood Total CO2 25.9, Cord Arterial Blood Base Excess -7.2, Cord Arterial Base Excess (Standard , Cord Arterial Bld Oxygen Saturation < 15.0, Cord Venous Blood pH 7.266, Cord Venous Blood PCO2 45.8, Cord Venous Blood PO2 19.5, Cord Venous Blood HCO3 20.4, Cord Venous Blood Total CO2 21.8, Cord Venous Base Excess (Actual) -6.6, Cord Venous Base Excess (Standard) 17.9, Cord Venous Blood Oxygen Saturation 43.9 05/18/21 05:39: Nucleated Red Blood Cells % (auto) 0.0 CBC/BMP Laboratory Tests 05/17/21 08:16 05/18/21 05:39 PATRICIO MOSQUERA May 18, 2021 07:06
[2021-05-18] MEDS: DOCUSATE SODIUM 100MG CAPSULE PO SCH ×2 (09:04→20:02)
[2021-05-18] MEDS: PRENATAL VITAMINS CHEWABLE TABLET PO SCH (09:05)
[2021-05-18] MEDS ORDERED: DOK1CAP7 PO (14:27)
[2021-05-18] MEDS ORDERED: IBUP80TA PO (14:27)
[2021-05-18] MEDS ORDERED: PERCOCET PO (14:27)
[2021-05-18] MEDS: IBUPROFEN 800 MG TAB PO SCH ×2 (14:34→21:05)
[2021-05-18 18:00] LABS: HEMATOCRIT 30.3 % (36.0-47.0); MEAN CORPUSCULAR HEMOGLOBIN 25.9 pg (27.0-33.0); PLATELET COUNT, AUTOMATED 228 10^3/uL (150-450); RED BLOOD COUNT 3.74 10^6/uL (4.00-5.40); WHITE BLOOD COUNT 11.3 10^3/uL (4.0-10.0)
[2021-05-18 18:14] LABS: HEMOGLOBIN 9.7 g/dl (12.0-15.5)
[2021-05-18] MEDS: SIMETHICONE 80MG CHEW TAB PO PRN (20:02)
[2021-05-19] VITALS (7 sets, daily range): BP systolic 107–127; BP diastolic 65–88
[2021-05-19] MEDS: PERCOCET 5MG/325MG TAB PO PRN ×2 (04:04→20:09)
[2021-05-19] MEDS: SIMETHICONE 80MG CHEW TAB PO PRN ×2 (04:53→20:55)
[2021-05-19] MEDS: IBUPROFEN 800 MG TAB PO SCH ×3 (05:00→23:22)
[2021-05-19] MEDS: DOCUSATE SODIUM 100MG CAPSULE PO SCH ×2 (08:41→20:03)
[2021-05-19] MEDS: PRENATAL VITAMINS CHEWABLE TABLET PO SCH (08:41)
--- NOTE | 2021-05-19 09:54 | IPNPDOC ---
Progress Note Date of Service: May 19, 2021 Day#: 2 Progress Note PPD/POD 2 SUBJECT: Laura is a 20yo [id number] s/p uncomplicated RLTCS on 05/17 for hx of prior section desiring repeat, doing well /post-op day #2. Her hx is significant for chronic marijuana use and social work is involved as her first child is in foster care. She was also anemic on admission and after surgery required 2u pRBCs. She has been ambulating, voiding spontaneously without issue and tolerating regular diet. Bottle feeding by choice. Reports lochia is like a normal period. Pain has not been well controlled- she lost IV access yesterday, but states the motrin/percocet are not sufficient for her pain. She notes she has not been very attentive to how she is getting out of bed (not log rolling) and her legs have been uncomfortably heavy. No calf tenderness. No f/c/n/v/CP/SOB. OBJECTIVE: VITAL SIGNS: Within normal limits, afebrile. Alert and oriented times three. Abdomen: Fundus firm at U-2. Obese. Soft, appropriately tender to palpation. Optifoam dressing overlies pfannenstiel incision and is clean/dry/intact Extremities: no pain with palpation of calves Labs: pre-op H/H: 08/18 post-op H/H: 6.9/22.6 --> (post-transfusion) 9.7/30.3 ASSESSMENT: Laura is a 20yo [id number] s/p uncomplicated RLTCS on 05/17 for hx of prior section desiring repeat, overall doing well /post-op day #2, but still having pain that she states is not controlled with PO pain meds. Vitals within normal limits, afebrile, hemodynamically stable with no evidence of infection. PLAN: 1. Routine /post-op care 2. Percocet and Motrin for pain. PRN IV morphine for breakthrough today with goal of transitioning back to percocet/motrin by this evening. Colace for bowel regimen. 3. Encourage ambulation and use of IS 4. Regular diet 5. Possible discharge tomorrow if meeting all milestones and pain well controlled Kristi Knight MD VS, I&O, 24H, Fishbone Vital Signs/I&O Vital Signs Date Time Temp Pulse Resp B/P (MAP) Pulse Ox O2 Delivery O2 Flow Rate FiO2 05/19/21 06:00 97.6 74 18 109/68 (82) 96 Room Air I&O- Last 24 Hours up to 6 AM 05/19/21 06:00 Intake Total 800 ml Balance 800 ml Laboratory Data 24H LABS Laboratory Tests 2 05/18/21 16:53: Nucleated Red Blood Cells % (auto) 0.0 CBC/BMP Laboratory Tests 05/18/21 16:53 Kristi Knight MD May 19, 2021 09:54
[2021-05-19] MEDS ORDERED: MORPHINE 4 MG/ML 1ML VIAL/SYRINGE (J2270) IV PRN (09:55)
[2021-05-19 19:12] LABS: Cannabinoid Positive (.); GC Carboxy THC >300 ng/mL (Cutoff=10)
[2021-05-20] MEDS: IBUPROFEN 800 MG TAB PO SCH ×2 (05:55→14:09)
[2021-05-20 06:00] VITALS: BP 118/69
--- NOTE | 2021-05-20 07:24 | DS.PDOC ---
Discharge Summary General Date of Admission May 17, 2021 at 07:40 Date of Discharge May 20, 2021 Discharge Summary PROCEDURES PERFORMED DURING STAY: section. ADMITTING DIAGNOSES: 1. 39 weeks, prior section. DISCHARGE DIAGNOSES: 1. Same. COMPLICATIONS/CHIEF COMPLAINT: Previous Section. HISTORY OF PRESENT ILLNESS: 20-year-old G2, P1 female at 39 weeks gestation presents for repeat section. HOSPITAL COURSE: 20-year-old G2, P1 female at 39 weeks gestation presents for repeat section. She has a history of 1 prior section. On May 17, 2021 she underwent repeat section for a female infant. There were no complications. Her postoperative course was unremarkable. She had adequate return of bladder bowel function. She had social worker assistant involved with the baby due to her social issues. She was deemed stable for discharge on postop day #3. DISCHARGE MEDICATIONS: Please see below. ALLERGIES: Please see below. PHYSICAL EXAMINATION ON DISCHARGE: VITAL SIGNS: Please see below. GENERAL: No apparent distress HEENT: NCAT NECK: Within normal CARDIOVASCULAR EXAMINATION: RRR RESPIRATORY EXAMINATION: Clear to auscultate ABDOMINAL EXAMINATION: Nontender, fundus firm, dressing clean dry intact EXTREMITIES: Nontender LABORATORY DATA: Please see below. PROGNOSIS: Good ACTIVITY: As tolerated. DIET: Regular DISCHARGE PLAN: Home DISCHARGE INSTRUCTIONS: 1. Discharge home today. 2. Instructions reviewed 3. Pain management ordered 4. Follow-up 2 weeks DISCHARGE CONDITION: Stable. TIME SPENT ON DISCHARGE: Greater than 10 minutes. Vital Signs/I&Os Vital Signs Date Time Temp Pulse Resp B/P (MAP) Pulse Ox O2 Delivery O2 Flow Rate FiO2 05/20/21 06:00 97.1 67 20 118/69 (85) 100 Room Air Discharge Medications Scheduled Docusate Sodium (Dok) 100 Mg Capsule, 100 MG PO BID Ibuprofen (Ibuprofen) 800 Mg Tablet, 800 MG PO Q8H Pnv,Calcium 72/Iron/Folic Acid (Preplus Ca-Fe 27 mg-FA 1 mg Tb) 1 Each Tablet, PO BID, (Reported) Sertraline Hcl (Zoloft) 25 Mg Tablet, 25 MG PO DAILY, (Reported) Scheduled PRN Oxycodone/Acetaminophen (Oxycodone-Acetaminophen 5-325) 1 Each Tablet, 1 TAB PO Q4H PRN for MILD/MODERATE PAIN (PS 1-7) Miscellaneous Medications Ferrous Sulfate (Ferosul) 325 Mg Tablet, (Reported) Omeprazole (Omeprazole) 20 Mg Capsule., (Reported) Allergies Coded Allergies: bee venom protein (honey bee) (Verified Allergy, Severe, ANAPHYLAXIS, 05/17/21) SEASONAL ALLERGIES (Verified Allergy, Unknown, 05/17/21) DUGLAS JOY MD May 20, 2021 07:24
[2021-05-20] MEDS: PERCOCET 5MG/325MG TAB PO PRN (07:33)
[2021-05-20] MEDS: PRENATAL VITAMINS CHEWABLE TABLET PO SCH (09:39)
[2021-05-20] MEDS: DOCUSATE SODIUM 100MG CAPSULE PO SCH (09:39)
== END 2021-05-20 15:50 | disposition home or self-care (01) | DRG 540 ==
LOC: M LDI 07:40 → M OBS 14:28
PROVIDERS: ADMIT Obstetrics & Gynecology; ATTEND Obstetrics & Gynecology
PROC: 10D07Z6 Extraction of Products of Conception, Vacuum, Via Natural or Artificial Opening (ICD-10-PCS; 2021-05-17)
PROC: 10D00Z1 Extraction of Products of Conception, Low, Open Approach (ICD-10-PCS; principal; 2021-05-17 09:30)
DX: O34.211 Maternal care for low transverse scar from previous cesarean delivery (principal); Z91.030 Bee allergy status; Z37.0 Single live birth; Z3A.39 39 weeks gestation of pregnancy

== ENCOUNTER 2021-05-26 12:58 | Emergency (ER) | payer OTHER ==
[~2021-05-26] VITALS: Ht 157.5 cm; Wt 69.6 kg
[~2021-05-26 12:58] MED LIST changes: +DOK1CAP7 PO; +PERCOCET PO; +ZOLO25TA PO
[2021-05-26 14:45] LABS: HEMATOCRIT 38.2 % (36.0-47.0); HEMOGLOBIN 11.9 g/dl (12.0-15.5); MEAN CORPUSCULAR HEMOGLOBIN 25.7 pg (27.0-33.0); MEAN CORPUSCULAR HGB CONC 31.2 g/dl (32.0-36.5); MEAN CORPUSCULAR VOLUME 82.5 fl (80.0-96.0); PLATELET COUNT, AUTOMATED 337 10^3/uL (150-450); RED BLOOD COUNT 4.63 10^6/uL (4.00-5.40)
[2021-05-26 15:07] LABS: BLOOD UREA NITROGEN 7 MG/DL (7-18); CALCIUM LEVEL 8.9 MG/DL (8.5-10.1); CARBON DIOXIDE LEVEL 28 MEQ/L (21-32); CHLORIDE LEVEL 110 MEQ/L (98-107); CREATININE FOR GFR 0.62 MG/DL (0.55-1.30); GLOMERULAR FILTRATION RATE > 60.0 (>60); GLUCOSE, FASTING 84 MG/DL (70-100); POTASSIUM SERUM 4.4 MEQ/L (3.5-5.1); SODIUM LEVEL 146 MEQ/L (136-145)
--- NOTE | 2021-05-26 15:23 | REP ---
INDICATION: c section inscision COMPARISON: None. TECHNIQUE: Real time ramirez scale and color B-mode ultrasound examination using linear high-frequency transducer. FINDINGS: Directed ultrasound examination overlying the Caesarean section incision site demonstrates 8.9 x 1.1 x 2.1 cm complex septated fluid collection without surrounding hyperemia. Finding likely represents postsurgical seroma/small hematoma. IMPRESSION: Septated complex fluid collection at the incision site suggesting seroma/hematoma. <Electronically signed by Nicolás Cohn > 05/26/21 [id number]
[2021-05-26] MEDS ORDERED: ANUS25SU PR (16:23)
[2021-05-26] MEDS ORDERED: MACR100C43 PO (16:23)
[2021-05-26 16:48] VITALS: BP 133/84
--- NOTE | 2021-05-28 14:37 | ED PDOC ---
Post-Departure Follow-Up dr foster faxed formal report of abdominal us for fu Neal Taylor MD May 28, 2021 14:37
== END 2021-05-26 16:50 | disposition home or self-care (01) ==
LOC: M ED 12:58
DX: L76.34 Postprocedural seroma of skin and subcutaneous tissue following other procedure (principal); K64.9 Unspecified hemorrhoids; G89.18 Other acute postprocedural pain; R19.7 Diarrhea, unspecified; N39.0 Urinary tract infection, site not specified; I10 Essential (primary) hypertension; F17.200 Nicotine dependence, unspecified, uncomplicated; Z91.030 Bee allergy status

== ENCOUNTER 2021-05-27 17:36 | Emergency (ER) | payer OTHER ==
[~2021-05-27] VITALS: Ht 157.5 cm; Wt 70.0 kg
[~2021-05-27 17:36] MED LIST changes: +ANUS25SU PR
[2021-05-27 19:54] LABS: BASO % 0.3 % (0.0-1.0); EOS # 0.2 10^3/uL (0.0-0.5); EOS % 1.8 % (0.0-3.0); HEMATOCRIT 40.1 % (36.0-47.0); HEMOGLOBIN 12.6 g/dl (12.0-15.5); LYMPH # 2.7 10^3/uL (1.5-5.0); LYMPH % 28.2 % (24.0-44.0); MEAN CORPUSCULAR HEMOGLOBIN 25.4 pg (27.0-33.0); MEAN CORPUSCULAR HGB CONC 31.4 g/dl (32.0-36.5); MEAN CORPUSCULAR VOLUME 80.8 fl (80.0-96.0); MONO # 0.7 10^3/uL (0.0-0.8); MONO % 7.5 % (2.0-8.0); NEUTROPHILS # 5.9 10^3/uL (1.5-8.5); NEUTROPHILS % 61.9 % (36.0-66.0); PLATELET COUNT, AUTOMATED 391 10^3/uL (150-450); RED BLOOD COUNT 4.96 10^6/uL (4.00-5.40); WHITE BLOOD COUNT 9.5 10^3/uL (4.0-10.0)
[2021-05-27 20:14] LABS: BLOOD UREA NITROGEN 10 MG/DL (7-18); C REACTIVE PROTEIN QUANTITATIV 1.37 MG/DL (0.00-0.30); CALCIUM LEVEL 8.8 MG/DL (8.5-10.1); CARBON DIOXIDE LEVEL 26 MEQ/L (21-32); CHLORIDE LEVEL 109 MEQ/L (98-107); GLOMERULAR FILTRATION RATE > 60.0 (>60); GLUCOSE, FASTING 89 MG/DL (70-100); POTASSIUM SERUM 3.9 MEQ/L (3.5-5.1); SODIUM LEVEL 142 MEQ/L (136-145)
[2021-05-27 20:22] LABS: HCG, SERUM QUALITATIVE POSITIVE (NEGATIVE)
[2021-05-27 20:28] VITALS: BP 123/82
[2021-05-27 20:37] LABS: ERYTHROCYTE SEDIMENTATION RATE 19 mm/hr (0-20)
[2021-05-27 22:31] LABS: HCG, SERUM QUANTITATIVE 36 MIU/ML
== END 2021-05-27 20:36 | disposition home or self-care (01) ==
LOC: M ED 17:36
DX: L76.34 Postprocedural seroma of skin and subcutaneous tissue following other procedure (principal); G89.18 Other acute postprocedural pain; I10 Essential (primary) hypertension; J45.909 Unspecified asthma, uncomplicated; F17.200 Nicotine dependence, unspecified, uncomplicated; Z91.030 Bee allergy status; Z79.899 Other long term (current) drug therapy

== ENCOUNTER → 2021-06-09 | Outpatient (REF) | payer OTHER | LOC: M LAB REF 12:51 | PROVIDERS: ATTEND Physician Assistant Medical | DX: R19.7 Diarrhea, unspecified (principal) ==

== ENCOUNTER 2021-06-16 11:30 | Emergency (ER) | payer OTHER ==
[~2021-06-16] VITALS: Ht 157.5 cm; Wt 65.5 kg
[2021-06-16 15:37] LABS: BASO % 0.6 % (0.0-1.0); EOS # 0.1 10^3/uL (0.0-0.5); HEMATOCRIT 42.6 % (36.0-47.0); HEMOGLOBIN 12.9 g/dl (12.0-15.5); LYMPH # 2.6 10^3/uL (1.5-5.0); LYMPH % 37.9 % (24.0-44.0); MEAN CORPUSCULAR HEMOGLOBIN 24.9 pg (27.0-33.0); MEAN CORPUSCULAR HGB CONC 30.3 g/dl (32.0-36.5); MEAN CORPUSCULAR VOLUME 82.2 fl (80.0-96.0); MONO # 0.3 10^3/uL (0.0-0.8); MONO % 4.9 % (2.0-8.0); NEUTROPHILS # 3.8 10^3/uL (1.5-8.5); NEUTROPHILS % 54.3 % (36.0-66.0); PLATELET COUNT, AUTOMATED 248 10^3/uL (150-450); RED BLOOD COUNT 5.18 10^6/uL (4.00-5.40)
[2021-06-16 16:01] LABS: ALT/SGPT 19 U/L (12-78); BILIRUBIN,DIRECT 0.1 MG/DL (0.0-0.2); BILIRUBIN,TOTAL 0.6 MG/DL (0.2-1.0); BLOOD UREA NITROGEN 10 MG/DL (7-18); CALCIUM LEVEL 9.2 MG/DL (8.5-10.1); CARBON DIOXIDE LEVEL 27 MEQ/L (21-32); CHLORIDE LEVEL 107 MEQ/L (98-107); CK-MB VALUE MASS < 1.0 NG/ML (<3.6); CPK CREATINE PHOSPHOKINASE 37 U/L (26-192); CREATININE FOR GFR 0.59 MG/DL (0.55-1.30); GLOMERULAR FILTRATION RATE > 60.0 (>60); GLUCOSE, FASTING 86 MG/DL (70-100); LIPASE 328 U/L (73-393); POTASSIUM SERUM 4.3 MEQ/L (3.5-5.1); SODIUM LEVEL 138 MEQ/L (136-145); TROPONIN I < 0.02 NG/ML (< 0.10)
[2021-06-16 16:10] LABS: HCG, SERUM QUALITATIVE NEGATIVE (NEGATIVE)
[2021-06-16 16:35] VITALS: BP 114/83
--- NOTE | 2021-06-17 07:36 | ECGEPIP ---
[facility] - ED Test Date: 2021-06-16 Pat Name: EMMANUEL MCKEON Department: Room: - Gender: Female Oncology Pharmacist: LADAN : 2000 Requested By: CÉSAR FONTENOT PA-C Order Number: [id number] Reading MD: Angel De Guzman Measurements Intervals [place] Rate: 70 P: 52 IN: 142 QRS: 17 QRSD: 80 T: 20 QT: 364 QTc: 393 Interpretive Statements Normal sinus rhythm INCOMPLETE RIGHT BUNDLE BRANCH BLOCK NONSPECIFIC T WAVE ABNORMALITY(S) NO PRIORS FOR COMPARISON Electronically Signed on 06-17-2021 7:36:32 EDT by Angel De Guzman
== END 2021-06-16 16:43 | disposition home or self-care (01) ==
LOC: M ED 11:30
DX: R07.89 Other chest pain (principal); R06.02 Shortness of breath; R20.2 Paresthesia of skin; R42 Dizziness and giddiness; I45.10 Unspecified right bundle-branch block; I10 Essential (primary) hypertension; J45.909 Unspecified asthma, uncomplicated; K21.9 Gastro-esophageal reflux disease without esophagitis; D64.9 Anemia, unspecified; F90.9 Attention-deficit hyperactivity disorder, unspecified type; F33.9 Major depressive disorder, recurrent, unspecified; Z91.030 Bee allergy status; Z79.899 Other long term (current) drug therapy

== ENCOUNTER 2021-11-05 10:59 | Emergency (ER) | payer OTHER ==
[~2021-11-05] VITALS: Ht 157.5 cm; Wt 61.5 kg
[~2021-11-05 10:59] MED LIST changes: +DOK1CAP4 PO; -DOK1CAP7 PO; +OMEP-173; -OMEP-218
[2021-11-05] MEDS ORDERED: ONDANSETRON 4MG/2ML VIAL IV ONE (11:45)
[2021-11-05] MEDS ORDERED: KETOROLAC 30 MG/ML 1ML VIAL IV ONE (11:45)
[2021-11-05] MEDS ORDERED: NS 1,000 ML IV ONE (11:45)
[2021-11-05] MEDS ORDERED: PANTOPRAZOLE 40MG VIAL (C9113 PER 1) IV ONE (11:45)
[2021-11-05 11:50] LABS: BASO % 0.1 % (0.0-1.0); EOS # 0.1 10^3/uL (0.0-0.5); EOS % 0.9 % (0.0-3.0); HEMATOCRIT 46.7 % (36.0-47.0); HEMOGLOBIN 15.1 g/dl (12.0-15.5); LYMPH # 0.9 10^3/uL (1.5-5.0); LYMPH % 11.3 % (24.0-44.0); MEAN CORPUSCULAR HEMOGLOBIN 26.8 pg (27.0-33.0); MEAN CORPUSCULAR HGB CONC 32.3 g/dl (32.0-36.5); MEAN CORPUSCULAR VOLUME 82.9 fl (80.0-96.0); MONO # 0.4 10^3/uL (0.0-0.8); MONO % 4.7 % (2.0-8.0); NEUTROPHILS # 6.3 10^3/uL (1.5-8.5); NEUTROPHILS % 82.6 % (36.0-66.0); PLATELET COUNT, AUTOMATED 247 10^3/uL (150-450); RED BLOOD COUNT 5.63 10^6/uL (4.00-5.40); WHITE BLOOD COUNT 7.6 10^3/uL (4.0-10.0)
[2021-11-05] MEDS ORDERED: ISOVUE-370 76% 100ML VIAL As Ordered ONE (11:59)
[2021-11-05 12:32] LABS: ALBUMIN 4.6 GM/DL (3.2-5.2); BILIRUBIN,DIRECT 0.2 MG/DL (0.0-0.2); BILIRUBIN,TOTAL 0.8 MG/DL (0.2-1.0); TOTAL PROTEIN 7.9 GM/DL (6.4-8.2)
[2021-11-05] MEDS ORDERED: GI COCKTAIL 50ML BTL(HYOSCYAMINE/MAALOX/LIDOCAINE VISCOUS)(1:3:1) PO ONE (15:20)
[2021-11-05] MEDS ORDERED: ONDANSETRON 4 MG ORAL DISINTEGRATING TAB PO ONE (15:50)
[2021-11-05] MEDS ORDERED: CARA1TAB6 PO (15:51)
[2021-11-05] MEDS ORDERED: PANT40TA29 PO (15:51)
[2021-11-05] MEDS ORDERED: ONDA4TAB6 PO (15:51)
[2021-11-05 16:05] VITALS: BP 121/92
== END 2021-11-05 16:19 | disposition home or self-care (01) ==
LOC: M ED 10:59
DX: R11.2 Nausea with vomiting, unspecified (principal); R19.7 Diarrhea, unspecified; R10.9 Unspecified abdominal pain; R00.2 Palpitations; R51.9 Headache, unspecified; I10 Essential (primary) hypertension; J45.909 Unspecified asthma, uncomplicated; D64.9 Anemia, unspecified; K21.9 Gastro-esophageal reflux disease without esophagitis; F41.9 Anxiety disorder, unspecified; F32.A Depression, unspecified; F90.9 Attention-deficit hyperactivity disorder, unspecified type; F17.290 Nicotine dependence, other tobacco product, uncomplicated; Z91.030 Bee allergy status; Z79.899 Other long term (current) drug therapy
CPT/HCPCS: 36415; 74177; 80047; 80076; 81001; 83690; 84702; 85025; 87086; 96361; 96374; 96375; 99284; C9113; J1885; J2405; Q0162; Q9967

== ENCOUNTER 2022-12-08 21:28 | Emergency (ER) | payer OTHER ==
[~2022-12-08] VITALS: Ht 160 cm; Wt 59.1 kg
[~2022-12-08 21:28] MED LIST changes: +CARA1TAB6 PO; +ONDA4TAB6 PO; +PANT40TA29 PO
[2022-12-08 21:35] VITALS: BP 104/55
[2022-12-08] MEDS ORDERED: ACET-683 PO (21:45)
== END 2022-12-08 22:20 | disposition left against medical advice (07) ==
LOC: M ED 21:28
DX: Z53.21 Procedure and treatment not carried out due to patient leaving prior to being seen by health care provider (principal)

== ENCOUNTER 2023-06-25 15:07 | Inpatient (IN) | payer MEDICAID, OTHER ==
[~2023-06-25 15:07] MED LIST changes: +ACET-683 PO
[2023-06-25] MEDS ORDERED: MED REC IN PROGRESS XX SCH (15:45)
[2023-06-25 16:09] LABS: HEMATOCRIT 36.3 % (36.0-47.0); HEMOGLOBIN 11.7 g/dl (12.0-15.5); MEAN CORPUSCULAR HEMOGLOBIN 27.8 pg (27.0-33.0); MEAN CORPUSCULAR HGB CONC 32.2 g/dl (32.0-36.5); MEAN CORPUSCULAR VOLUME 86.2 fl (80.0-96.0); PLATELET COUNT, AUTOMATED 288 10^3/uL (150-450); RED BLOOD COUNT 4.21 10^6/uL (4.00-5.40); WHITE BLOOD COUNT 8.8 10^3/uL (4.0-10.0)
[2023-06-25 16:23] LABS: BARBITURATES URINE NEGATIVE (NEGATIVE); COCAINE METABOLITE URINE NEGATIVE (NEGATIVE); METHADONE URINE NEGATIVE (NEGATIVE); OPIATES URINE NEGATIVE (NEGATIVE)
[2023-06-25 16:24] LABS: BENZODIAZEPINES URINE NEGATIVE (NEGATIVE); PHENCYCLIDINE URINE NEGATIVE (NEGATIVE)
[2023-06-25 16:25] LABS: ETHYL ALCOHOL (ETHANOL) < 0.003 % (0.000-0.010)
[2023-06-25 16:27] LABS: ACETAMINOPHEN LEVEL < 2.0 UG/ML (10.0-20.0); AMPHETAMINES LEVEL URINE POSITIVE (NEGATIVE); CANNABINOIDS URINE POSITIVE (NEGATIVE); SALICYLATE LEVEL < 3.0 MG/DL (<30)
[2023-06-25 16:28] LABS: ALBUMIN 4.6 G/DL (3.2-5.2); ALKALINE PHOSPHATASE 69 U/L (46-116); ALT/SGPT 12 U/L (7.0-40); AST/SGOT 17 U/L (<34); BILIRUBIN,DIRECT 0.5 MG/DL (<0.4); BILIRUBIN,TOTAL 1.3 MG/DL (0.3-1.2); BLOOD UREA NITROGEN 16 MG/DL (9-23); CALCIUM LEVEL 9.2 MG/DL (8.5-10.1); CARBON DIOXIDE LEVEL 28 MMOL/L (20-31); CHLORIDE LEVEL 104 MMOL/L (98-107); CREATININE FOR GFR 0.94 MG/DL (0.55-1.30); GLOMERULAR FILTRATION RATE > 60.0 (>60); GLUCOSE, FASTING 89 MG/DL (60-100); SODIUM LEVEL 140 MMOL/L (136-145); TOTAL PROTEIN 7.4 G/DL (5.7-8.2)
[2023-06-25 16:30] LABS: THYROID STIMULATING HORMONE 1.362 uIU/ML (0.55-4.78)
[2023-06-25 18:47] LABS: HCG, SERUM QUALITATIVE NEGATIVE (NEGATIVE)
[2023-06-26] MEDS ORDERED: MED REC CURRENTLY UNOBTAINABLE XX SCH (02:10)
[2023-06-26] MEDS ORDERED: IBUPROFEN 400MG TAB PO PRN (14:10)
[2023-06-26] MEDS ORDERED: MAALOX 30 ML SUSP *UDC PO PRN (14:10)
[2023-06-26] MEDS ORDERED: OLANZapine ORAL DISINTEGRATING TAB 5MG PO PRN (14:10)
[2023-06-26] MEDS ORDERED: diphenhydrAMINE 25MG CAP PO PRN (14:10)
[2023-06-26] MEDS ORDERED: MOM 30ML SUSPENSION UDC PO PRN (14:10)
[2023-06-26] MEDS ORDERED: ACETAMINOPHEN TAB 650MG DOSE (2X325MG) PO PRN (14:10)
[2023-06-26] MEDS ORDERED: CITA20TA6 PO (15:27)
[2023-06-26] MEDS ORDERED: HOME MED LIST COMPLETE! XX SCH (15:40)
[2023-06-26 22:00] VITALS: BP 110/72; TEMP 98; O2SAT 100
[2023-06-26] MEDS: traZODone 50 MG TAB PO PRN (23:07)
[2023-06-27 06:14] VITALS: BP 99/55; TEMP 98.1; O2SAT 96
[2023-06-27 16:51] VITALS: BP 110/60; TEMP 97; O2SAT 99
[2023-06-27] MEDS: traZODone 50 MG TAB PO PRN (20:49)
[2023-06-27] MEDS: OLANZapine 5 MG TAB PO SCH (20:49)
[2023-06-28 06:11] VITALS: BP 105/52; TEMP 97.6; O2SAT 97
[2023-06-28] MEDS: OLANZapine 5 MG TAB PO SCH (09:11)
[2023-06-28] MEDS ORDERED: OLAN1TAB16 PO (09:37)
== END 2023-06-28 13:22 | disposition home or self-care (01) | DRG 776 ==
LOC: M ED 15:07 → M ED INP 06-26 14:06 → M PSY 06-26 22:11
PROVIDERS: ADMIT Student in an Organized Health Care Education/Training Program; ATTEND Student in an Organized Health Care Education/Training Program
DX: F15.988 Other stimulant use, unspecified with other stimulant-induced disorder (principal); F31.9 Bipolar disorder, unspecified; F12.90 Cannabis use, unspecified, uncomplicated; F17.200 Nicotine dependence, unspecified, uncomplicated; F43.10 Post-traumatic stress disorder, unspecified; Z91.128 Patient's intentional underdosing of medication regimen for other reason; Z91.030 Bee allergy status

== ENCOUNTER → 2024-11-27 | Outpatient (CLI) | payer OTHER, SELFPAY ==
[~2024-11-27] MED LIST changes: +CITA20TA6 PO; +OLAN1TAB16 PO; +ONDA-282 PO; -ONDA4TAB6 PO
[2024-11-27 17:45] LABS: HEMATOCRIT 32.5 % (36.0-47.0); HEMOGLOBIN 10.5 g/dl (12.0-15.5); MEAN CORPUSCULAR HEMOGLOBIN 28.8 pg (27.0-33.0); MEAN CORPUSCULAR HGB CONC 32.3 g/dl (32.0-36.5); MEAN CORPUSCULAR VOLUME 89.3 fl (80.0-96.0); PLATELET COUNT, AUTOMATED 285 10^3/uL (150-450); RED BLOOD COUNT 3.64 10^6/uL (4.00-5.40); WHITE BLOOD COUNT 9.1 10^3/uL (4.0-10.0)
[2024-11-27 18:42] LABS: HIV 1&2 SCREEN NEGATIVE (NEGATIVE)
[2024-11-27 18:50] LABS: HEPATITIS C VIRUS ABY INDEX 0.03 INDEX (<0.8)
[2024-11-27 19:36] LABS: GC DNA AMPLIFICATION NEGATIVE (NEGATIVE)
== END ==
LOC: M PLALAB 14:58
PROVIDERS: ATTEND Specialist
DX: Z34.80 Encounter for supervision of other normal pregnancy, unspecified trimester (principal); Z3A.00 Weeks of gestation of pregnancy not specified

== ENCOUNTER → 2025-01-14 | Outpatient (CLI) | payer OTHER ==
[~2025-01-14] MED LIST changes: +ACET-907 PO; -ELIM5CRE2 TOP; +OXYC1TAB23 PO; +PERM60CR8 TOP; +PRENTAB9 PO
[2025-01-14 14:06] LABS: HEMATOCRIT 31.9 % (36.0-47.0); HEMOGLOBIN 10.2 g/dl (12.0-15.5); MEAN CORPUSCULAR HEMOGLOBIN 27.6 pg (27.0-33.0); MEAN CORPUSCULAR VOLUME 86.4 fl (80.0-96.0); PLATELET COUNT, AUTOMATED 317 10^3/uL (150-450); RED BLOOD COUNT 3.69 10^6/uL (4.00-5.40); WHITE BLOOD COUNT 9.4 10^3/uL (4.0-10.0)
[2025-01-14 14:34] LABS: GLUCOSE CHALLENGE TEST 1 HOUR 73 MG/DL (LESS THAN 140)
[2025-01-14 15:09] LABS: HIV 1&2 SCREEN NEGATIVE (NEGATIVE)
[2025-01-14 15:17] LABS: HEPATITIS C VIRUS ABY INDEX 0.13 INDEX (<0.8)
[2025-01-14 15:19] LABS: GC DNA AMPLIFICATION NEGATIVE (NEGATIVE)
[2025-01-14 18:59] LABS: Trichomonas vaginalis (AMP) NOT DETECTED (NEGATIVE)
== END ==
LOC: M PLALAB 11:32
PROVIDERS: ATTEND Obstetrics & Gynecology
DX: Z34.82 Encounter for supervision of other normal pregnancy, second trimester (principal)
CPT/HCPCS: 36415; 82950; 85027; 86780; 86803; 86850; 86870; 86900; 86901; 87389; 87661; 87810; 87850; J2790

== ENCOUNTER 2025-01-21 11:04 | Emergency (ER) | payer OTHER ==
[~2025-01-21 11:04] MED LIST changes: -ACET-907 PO; -OXYC1TAB23 PO; -PRENTAB9 PO
[2025-01-21] MEDS ORDERED: PRENTAB9 PO (11:50)
[2025-01-21] MEDS ORDERED: ACET-907 PO (11:50)
[2025-01-21] MEDS ORDERED: OXYC1TAB23 PO (15:14)
== END 2025-01-21 11:23 | disposition admitted as inpatient to this hospital (09) ==
LOC: M ED 11:04
DX: Z53.21 Procedure and treatment not carried out due to patient leaving prior to being seen by health care provider (principal)

== ENCOUNTER 2025-01-21 11:20 | Outpatient (CLI) | payer OTHER ==
[~2025-01-21] VITALS: Ht 157.5 cm; Wt 69.6 kg
[2025-01-21 11:43] VITALS: BP 110/66
[2025-01-21] MEDS ORDERED: PRENTAB9 PO (11:50)
[2025-01-21] MEDS ORDERED: ACET-907 PO (11:50)
[2025-01-21] MEDS ORDERED: HOME MED LIST COMPLETE! XX SCH (11:55)
[2025-01-21 13:56] VITALS: BP 124/70
[2025-01-21] MEDS: PERCOCET 5MG/325MG TAB PO ONE (14:57)
[2025-01-21] MEDS ORDERED: OXYC1TAB23 PO (15:14)
[2025-01-21 15:34] VITALS: BP 102/63
[2025-01-21 17:59] VITALS: BP 121/78
== END 2025-01-21 18:03 | disposition home or self-care (01) ==
LOC: M LDO 11:20
PROVIDERS: ATTEND Specialist
DX: O26.893 Other specified pregnancy related conditions, third trimester (principal); O09.33 Supervision of pregnancy with insufficient antenatal care, third trimester; R25.2 Cramp and spasm; R68.84 Jaw pain; Z3A.29 29 weeks gestation of pregnancy

== ENCOUNTER → 2025-01-23 | Outpatient (CLI) | payer OTHER ==
[~2025-01-23] MED LIST changes: +ACET-907 PO; +OXYC1TAB23 PO; +PRENTAB9 PO
== END ==
LOC: M LAB 16:11
PROVIDERS: ATTEND Obstetrics & Gynecology
DX: Z34.82 Encounter for supervision of other normal pregnancy, second trimester (principal); Z36.5 Encounter for antenatal screening for isoimmunization

== ENCOUNTER → 2025-02-04 | Outpatient (CLI) | payer OTHER | LOC: M RAD 13:40 | PROVIDERS: ATTEND Specialist | DX: Z34.82 Encounter for supervision of other normal pregnancy, second trimester (principal); Z3A.31 31 weeks gestation of pregnancy ==

== ENCOUNTER → 2025-02-10 | Outpatient (CLI) | payer OTHER | LOC: M LAB 12:55 | PROVIDERS: ATTEND Obstetrics & Gynecology | DX: O36.1930 Maternal care for other isoimmunization, third trimester, not applicable or unspecified (principal) ==

== ENCOUNTER → 2025-02-17 | Outpatient (REF) | payer OTHER | LOC: M PLALAB 08:38 | PROVIDERS: ATTEND Obstetrics & Gynecology | DX: O26.893 Other specified pregnancy related conditions, third trimester (principal) ==

== ENCOUNTER 2025-03-31 07:30 | Inpatient (IN) | payer MEDICAID, OTHER, SELFPAY ==
[~2025-03-31] VITALS: Ht 157.5 cm; Wt 76.8 kg
[2025-03-31] VITALS (10 sets, daily range): BP systolic 92–112; BP diastolic 49–76; TEMP 98.4; O2SAT 97–98
[2025-03-31] MEDS ORDERED: ACETAMINOPHEN 1000MG/100ML IV BAG As Ordered ONE (08:59)
[2025-03-31] MEDS ORDERED: KETOROLAC 30 MG/ML 1ML VIAL As Ordered ONE (08:59)
[2025-03-31] MEDS ORDERED: OXYTOCIN 30UNITS IN 0.9% NaCl 500ML IV BAG As Ordered ONE (08:59)
[2025-03-31] MEDS ORDERED: ONDANSETRON 4MG 2ML VIAL As Ordered ONE (08:59)
[2025-03-31] MEDS ORDERED: MORPHINE PRES-FREE INJ 10 MG/10 ML VIAL As Ordered ONE (09:02)
[2025-03-31 09:08] LABS: BASO % 0.2 % (0.0-1.0); EOS # 0.1 10^3/uL (0.0-0.5); HEMATOCRIT 30.9 % (36.0-47.0); HEMOGLOBIN 9.8 g/dl (12.0-15.5); LYMPH # 1.9 10^3/uL (1.5-5.0); LYMPH % 20.9 % (24.0-44.0); MEAN CORPUSCULAR HEMOGLOBIN 25.9 pg (27.0-33.0); MEAN CORPUSCULAR HGB CONC 31.7 g/dl (32.0-36.5); MEAN CORPUSCULAR VOLUME 81.5 fl (80.0-96.0); MONO # 0.6 10^3/uL (0.0-0.8); MONO % 6.3 % (2.0-8.0); NEUTROPHILS # 6.4 10^3/uL (1.5-8.5); PLATELET COUNT, AUTOMATED 206 10^3/uL (150-450); RED BLOOD COUNT 3.79 10^6/uL (4.00-5.40); WHITE BLOOD COUNT 9.2 10^3/uL (4.0-10.0)
[2025-03-31] MEDS: ceFAZolin SODIUM 2 GM in DEXTROSE 5% (D5W) ADV/MINI-BAG 50 ML IV ONE (09:42)
[2025-03-31] MEDS: BICITRA 30ML SOLN UDC PO ONE (09:42)
[2025-03-31] MEDS: LACTATED RINGER'S 1000 ML IV STA (09:43)
[2025-03-31] MEDS: LR 1,000 ML IV SCH (09:45)
[2025-03-31 09:59] LABS: HIV 1&2 SCREEN NEGATIVE (NEGATIVE)
[2025-03-31 10:07] LABS: HEPATITIS C VIRUS ABY INDEX 0.04 INDEX (<0.8)
[2025-03-31] MEDS ORDERED: CALCIUM CARBONATE 500 MG CHEW U/D PO PRN (10:25)
[2025-03-31] MEDS ORDERED: MOM 30ML SUSPENSION UDC PO PRN (10:25)
[2025-03-31] MEDS ORDERED: ONDANSETRON 4MG 2ML VIAL IV PRN (10:25)
[2025-03-31] MEDS ORDERED: RHOGAM 300MCG (1500IU) INJ IM SCH (10:25)
[2025-03-31] MEDS: OXYTOCIN DRIP 30 UNITS in IV 1 EA IV SCH (10:25)
[2025-03-31] MEDS ORDERED: LR 1,000 ML IV SCH (10:25)
[2025-03-31] MEDS ORDERED: ATROPINE SULF 0.4 MG/ML 1ML VIAL As Ordered ONE (10:28)
[2025-03-31] MEDS: KETOROLAC 30 MG/ML 1ML VIAL IV SCH (17:01)
[2025-03-31] MEDS: DOCUSATE SODIUM 100MG CAPSULE PO SCH (19:44)
[2025-03-31] MEDS: PERCOCET 5MG/325MG TAB PO PRN (19:45)
[2025-04-01 02:12] VITALS: BP 103/51; O2SAT 100
[2025-04-01] MEDS: SIMETHICONE 80MG CHEW TAB PO PRN (05:55)
[2025-04-01 06:00] VITALS: BP 103/60; O2SAT 98
[2025-04-01 06:49] LABS: HEMATOCRIT 24.9 % (36.0-47.0); MEAN CORPUSCULAR HEMOGLOBIN 25.7 pg (27.0-33.0); MEAN CORPUSCULAR HGB CONC 31.3 g/dl (32.0-36.5); MEAN CORPUSCULAR VOLUME 82.2 fl (80.0-96.0); PLATELET COUNT, AUTOMATED 181 10^3/uL (150-450); RED BLOOD COUNT 3.03 10^6/uL (4.00-5.40); WHITE BLOOD COUNT 9.9 10^3/uL (4.0-10.0)
[2025-04-01 06:53] LABS: HEMOGLOBIN 7.8 g/dl (12.0-15.5)
[2025-04-01] MEDS: FERROUS SULFATE 325MG TAB PO SCH (09:32)
[2025-04-01] MEDS: PRENATAL VITAMINS CHEWABLE TABLET PO SCH (09:32)
[2025-04-01 10:00] VITALS: BP 98/52; O2SAT 97
[2025-04-01] MEDS: IBUPROFEN 800 MG TAB PO SCH (12:48)
[2025-04-01 14:00] VITALS: BP 131/61; O2SAT 97
[2025-04-01 18:06] VITALS: BP 107/58; O2SAT 97
[2025-04-01 22:00] VITALS: BP 133/83; O2SAT 98
[2025-04-01] MEDS: PERCOCET 5MG/325MG TAB PO PRN (23:53)
[2025-04-02 02:00] VITALS: BP 108/57; O2SAT 97
[2025-04-02 06:00] VITALS: BP 120/75; O2SAT 98
[2025-04-02] MEDS ORDERED: MEASLES,MUMPS,RUBELLA VACCINE INJ (MMR-II) SC.IMMUN ONE (09:00)
[2025-04-02 09:31] VITALS: BP 118/74; O2SAT 98
[2025-04-02] MEDS ORDERED: IBUP80TA PO (11:18)
== END 2025-04-02 14:35 | disposition home or self-care (01) | DRG 540 ==
LOC: M LDI 07:30 → M OBS 13:26
PROVIDERS: ADMIT Obstetrics & Gynecology; ATTEND Obstetrics & Gynecology
PROC: 0UB60ZZ Excision of Left Fallopian Tube, Open Approach (ICD-10-PCS; 2025-03-31)
PROC: 10D00Z1 Extraction of Products of Conception, Low, Open Approach (ICD-10-PCS; principal; 2025-03-31 09:30)
DX: O34.211 Maternal care for low transverse scar from previous cesarean delivery (principal); Z37.0 Single live birth; Z3A.39 39 weeks gestation of pregnancy; Z30.2 Encounter for sterilization